=== PATIENT | female | born 1975 | race Caucasian/White ===

== ENCOUNTER 2023-05-23 13:28 | Inpatient (IN) | payer OTHER, MEDICAID, SELFPAY ==
[2023-05-23] VITALS (19 sets, daily range): BP systolic 139–214; BP diastolic 79–115; PULSE 62–101; RESP 16–20; TEMP 36.4–38.4; O2SAT 94–99; BMI 28.3; BMI 33.3
--- NOTE | 2023-05-23 13:35 | DI.RAD.S_ITS ---
PROCEDURE: XR CHEST 1V INDICATIONS: suspected sepsis TECHNIQUE: One view of the chest was acquired. COMPARISON: None. FINDINGS: Surgical changes and devices: None. Lungs and pleura: On this semiupright portable chest examination, no large pneumothorax or large pleural effusions are seen. No focal infiltrates are seen. Mediastinum: Mediastinal contours appear normal. Heart size is normal. Bones and chest wall: No suspicious bony lesions. Overlying soft tissues appear unremarkable. IMPRESSION: Portable chest within normal limits for age. Dictated by: Eder Weiss M.D. on 05/23/2023 at 13:08 Approved by: Eder Weiss M.D. on 05/23/2023 at 13:08
[2023-05-23 13:56] LABS: Add Manual Diff / Slide Review NO; Basophils Absolute Auto 100 /uL (0-100); Basophils Percent Auto 0.4 % (0-2); Eosinophils Absolute Auto 100 /uL (0-450); Eosinophils Percent Auto 0.6 % (2-4); Hematocrit 40.1 % (36-46); Hemoglobin 13.4 g/dL (12.0-16.0); Lymphocytes Absolute Auto 1800 /uL (1100-4500); Lymphocytes Percent Auto 10.6 % (25-40); Mean Corpuscular HGB Conc 33.5 % (30-36); Mean Corpuscular Hemoglobin 28.3 PG (26-34); Mean Corpuscular Volume 84.5 fL (80-100); Monocytes Absolute Auto 900 /uL (0-900); Monocytes Percent Auto 5.2 % (3-14); Neutrophils Absolute Auto 13900 /uL (1500-7000); Neutrophils Percent Auto 83.2 % (50-75); Platelet Count 295 X10^3/uL (150-400); Red Blood Cell Count 4.75 X10^6/uL (4.0-5.2); Red Cell Distribution Width 14.5 % (11.6-14.8); White Blood Cell Count 16.7 X10^3/uL (4.5-11.0)
[2023-05-23] MEDS: SODIUM CHLORIDE 0.9% 1,641 ML 547 ML IV (13:58)
[2023-05-23] MEDS: cefTRIAXone 1,000 MG in SODIUM CHLORIDE 0.9% 100 ML 200 MG IV (13:59)
--- NOTE | 2023-05-23 13:59 | DI.US.S_ITS ---
PROCEDURE: US PERIPH VENOUS LOW EXTREM RT INDICATIONS: SWELLING TECHNIQUE: Real-time imaging, as well as color and pulse Doppler interrogation, were performed of the lower extremity deep veins from the inguinal ligament to the popliteal fossa, with documentation of the visualized calf veins. COMPARISON: [facility], CR, XR CHEST 1V, 05/23/2023, 13:38. FINDINGS: The common femoral, femoral, popliteal, and the visualized calf veins are normally compressible, and free of intraluminal thrombus. Color and pulse Doppler demonstrate normal phasic intraluminal flow. There is normal augmentation response to distal compression maneuver. Superficial soft tissue edema can be seen. IMPRESSION: No findings of lower extremity deep venous thrombosis. Dictated by: Eder Weiss M.D. on 05/23/2023 at 14:50 Approved by: Eder Weiss M.D. on 05/23/2023 at 14:51
--- NOTE | 2023-05-23 14:01 | ED.SKABFB ---
HPI - Skin/Abscess/Foreign Bdy General Chief complaint: Skin/Abscess/Foreign Body Stated complaint: swollen rt leg Time Seen by Provider: 05/23/23 13:36 History of Present Illness HPI narrative: 47-year-old female presents for evaluation of right lower extremity pain and swelling. Has been present for approximately 3-4 days. Patient has no known medical history, however she is not seen a doctor in many years. Patient states that she is fallen frequently and has two kittens that have scratched up her leg. Over the last few days her leg has become progressively more red and more swollen. It is painful and now she has several areas that are weeping pus and she decided to present for evaluation. Related Data Home Medications Medication Instructions Recorded Confirmed No Known Home Medications 05/23/23 05/23/23 Allergies Allergy/AdvReac Type Severity Reaction Status Date / Time latex Allergy Mild Hives Verified 05/23/23 13:38 Review of Systems Review of Systems Narrative: CONSTITUTIONAL- Denies: fever, chills, fatigue HEENT- Denies: sore throat, nosebleed, vision changes RESPIRATORY- Denies: shortness of breath, cough, wheezing CARDIAC- Denies: chest pain, edema, orthopnea GI- Denies: abdominal pain, nausea, vomiting, constipation, diarrhea - Denies: frequency, dysuria, hematuria, flank pain MSK-reports: Extremity pain, extremity swelling Denies: joint pain, joint swelling SKIN-reports: Redness, swelling NEUROLOGICAL- Denies: headache, numbness, weakness, dizziness PSYCHIATRIC- Denies: anxiety, depression, suicidal ideation, homicidal ideation Patient History Medical History Hypertension Smoker Social History household members: none Smoking Status: Current some day smoker alcohol intake: current Exam Initial Vital Signs Initial Vital Signs: Vital Signs Temperature 97.5 F L 05/23/23 13:30 Pulse Rate 98 H 05/23/23 13:30 Respiratory Rate 16 05/23/23 13:30 Blood Pressure 161/96 H 05/23/23 13:30 Pulse Oximetry 98 05/23/23 13:30 Oxygen Delivery Method Room Air 05/23/23 13:30 Const: Disheveled, appears older than stated age, chronically unwell Eyes: PERRL, EOMI, conjunctiva normal ENT: Atraumatic, dentition normal, mucous membranes moist Cardiac: regular rate, regular rhythm RESP: unlabored, clear bilaterally, no wheezing GI: Atraumatic, soft, nontender, nondistended, no rebound, no guarding MSK: Excoriations over RLE, full range of motion, pulses equal Skin: Extensive erythema and cellulitis of right lower extremity, warmth present, extending up to groin Neuro: AO x3, CN II-XII grossly intact, moves all extremities Psych: affect normal, mood normal, not suicidal, not homicidal Course Course Course Narrative: This is a chronically unwell appearing patient with extensive cellulitic changes to her right lower extremity. There is weeping pus from several excoriations on the lower extremity. Several possible sources, patient states that she frequently falls and scratches her legs on different things, however she has also been scratched repeatedly by new kittens. We will cover for normal skin sudarshan, however will also cover for feline bacteria by including flagyl. Orders Ordered: Acetaminophen (Acetaminophen 325 Mg Tablet) 650 mg PO Q6H PRN PRN Reason: Fever/Mild Pain (1-3) Last Admin: 05/23/23 23:17 Dose: 650 mg Documented By: MS Heparin Sodium (Porcine) (Heparin 5,000 Unit/Ml Vial) 5,000 unit SUBCUT BID [facility] Last Admin: 05/23/23 21:47 Dose: 5,000 unit Documented By: MS Sodium Chloride (Normal Saline 0.9%) 1,000 mls @ 100 mls/hr IV CONT [facility] Last Admin: 05/23/23 21:47 Dose: 100 mls/hr Documented By: MS Vancomycin HCl/Dextrose (Vancomycin) 1,500 mg in 300 mls @ 200 mls/hr IV Q12H [facility] Last Infusion: 05/24/23 02:53 Dose: 0 mls/hr Documented By: Admin: 05/24/23 01:23 Dose: 200 mls/hr Documented By: MS Ampicillin Sodium/Sulbactam (Sodium 3 gm/ Sodium Chloride) 100 mls @ 200 mls/hr IV Q6H [facility] Metronidazole (Metronidazole 500 Mg Tablet) 500 mg PO BID [facility] Last Admin: 05/23/23 21:47 Dose: 500 mg Documented By: MS Naloxone HCl (Naloxone 0.4 Mg/Ml Vial) 0.2 mg IV Q2MIN PRN PRN Reason: Opiate Reversal Ondansetron HCl (Ondansetron 4 Mg/2 Ml Inj) 4 mg IV Q8HR PRN PRN Reason: Nausea And Vomiting Oxycodone/Acetaminophen (Oxycodone/Acetaminophen 5/325 Tablet) 1 tab PO Q4HR PRN PRN Reason: Pain, Moderate (4-6) Last Admin: 05/24/23 04:49 Dose: 1 tab Documented By: Potassium Chloride (Potassium Chloride 20 Meq Tab) 40 meq PO Q6H CARLITO Stop: 05/24/23 13:16 Vancomycin HCl (Vancomycin Per Pharmacy) 1 request MISC NOW ONE Stop: 05/23/23 19:19 Discontinued Medications Acetaminophen (Acetaminophen 325 Mg Tablet) 975 mg PO NOW ONE Stop: 05/23/23 18:06 Last Admin: 05/23/23 18:07 Dose: 975 mg Documented By: ELIDIA Sodium Chloride (Normal Saline 0.9%) 1,000 mls @ 1,000 mls/hr IV BOLUS ONE Stop: 05/23/23 14:34 Last Admin: 05/23/23 16:33 Dose: Not Given Documented By: ELIDIA Vancomycin HCl/Dextrose (Vancomycin) 1,500 mg in 300 mls @ 200 mls/hr IV NOW ONE Stop: 05/23/23 15:21 Last Infusion: 05/23/23 16:49 Dose: 0 mls/hr Documented By: Admin: 05/23/23 15:00 Dose: 200 mls/hr Documented By: ELIDIA Ceftriaxone Sodium 1,000 mg/ (Sodium Chloride) 100 mls @ 200 mls/hr IV NOW ONE Stop: 05/23/23 13:53 Last Infusion: 05/23/23 14:57 Dose: 0 mls/hr Documented By: Admin: 05/23/23 13:59 Dose: 200 mls/hr Documented By: SYLVESTER Metronidazole (Flagyl) 500 mg in 100 mls @ 100 mls/hr IV NOW ONE Stop: 05/23/23 14:54 Last Infusion: 05/23/23 18:01 Dose: 0 mls/hr Documented By: Admin: 05/23/23 16:55 Dose: 100 mls/hr Documented By: ELIDIA Sodium Chloride (Normal Saline 0.9%) 1,641 mls @ 547 mls/hr 30 ml/kg infuse over 3 hr (1641 ml) IV NOW ONE Stop: 05/23/23 17:43 Last Infusion: 05/23/23 16:27 Dose: 0 mls/hr Documented By: Admin: 05/23/23 13:58 Dose: 547 mls/hr Documented By: BS Ceftriaxone Sodium 1,000 mg/ (Sodium Chloride) 100 mls @ 200 mls/hr IV Q24H [facility] Last Admin: 05/24/23 07:26 Dose: Not Given Documented By: LDV Ceftriaxone Sodium 1,000 mg/ (Sodium Chloride) 100 mls @ 200 mls/hr IV Q24H [facility] Ondansetron HCl (Ondansetron 4 Mg/2 Ml Inj) 4 mg IV NOW PRN PRN Reason: Nausea And Vomiting Ondansetron HCl (Ondansetron 4 Mg Odt) 4 mg SL NOW PRN PRN Reason: Nausea And Vomiting Reevaluation(s) Reevaluation #1: Laboratory work significant for leukocytosis, elevated lactic acid. Urine drug screen positive for amphetamines. Imaging is negative for DVT or pneumonia. Due to the extensive cellulitis as well as lab derangements patient poor candidate for outpatient treatment and will admit patient for further IV antibiotics and treatment. Vital Signs Vital signs: Vital Signs - 8 hr 05/23/23 13:30 05/23/23 14:23 05/23/23 14:24 Temperature 97.5 F L Pulse Rate 98 H 62 Respiratory Rate 16 Blood Pressure 161/96 H 157/79 H Pulse Oximetry 98 97 Oxygen Delivery Method Room Air Room Air 05/23/23 14:30 05/23/23 14:30 05/23/23 15:00 Temperature Pulse Rate 86 Respiratory Rate Blood Pressure 154/88 H 159/101 H Pulse Oximetry 97 Oxygen Delivery Method Room Air 05/23/23 15:00 05/23/23 15:05 05/23/23 15:05 Temperature Pulse Rate 90 91 H Respiratory Rate Blood Pressure 162/82 H Pulse Oximetry 95 95 Oxygen Delivery Method 05/23/23 15:30 05/23/23 15:30 05/23/23 16:00 Temperature Pulse Rate 86 Respiratory Rate Blood Pressure 158/92 H 172/91 H Pulse Oximetry 95 Oxygen Delivery Method Room Air 05/23/23 16:00 05/23/23 16:30 05/23/23 16:30 Temperature Pulse Rate 92 H 90 Respiratory Rate Blood Pressure 168/104 H Pulse Oximetry 94 94 Oxygen Delivery Method Room Air 05/23/23 16:47 05/23/23 17:00 05/23/23 17:00 Temperature Pulse Rate 95 H Respiratory Rate Blood Pressure 161/84 H Pulse Oximetry 94 95 Oxygen Delivery Method Room Air 05/23/23 17:30 05/23/23 17:31 05/23/23 17:31 Temperature Pulse Rate 97 H 98 H Respiratory Rate Blood Pressure 214/115 H Pulse Oximetry 94 94 Oxygen Delivery Method 05/23/23 17:35 05/23/23 17:35 Temperature Pulse Rate 100 H Respiratory Rate Blood Pressure 175/92 H Pulse Oximetry 94 Oxygen Delivery Method Room Air MDM - Skin/Abscess/Foreign Bdy Differential Diagnosis Differential diagnosis: Likely abscess of skin or subcutaneous tissue, urticaria and cellulitis Lab Data 05/24/23 05:30 05/24/23 05:30 Labs: Lab Results 05/23/23 05/23/23 05/23/23 Range/Units 13:45 13:45 13:55 WBC 16.7 H (4.5-11.0) X10^3/uL RBC 4.75 (4.0-5.2) X10^6/uL Hgb 13.4 (12.0-16.0) g/dL Hct 40.1 (36-46) % MCV 84.5 (80-100) fL MCH 28.3 (26-34) PG MCHC 33.5 (30-36) % RDW 14.5 (11.6-14.8) % Plt Count 295 (150-400) X10^3/uL Neut % (Auto) 83.2 H (50-75) % Lymph % (Auto) 10.6 L (25-40) % [place] % (Auto) 5.2 (3-14) % Eos % (Auto) 0.6 L (2-4) % Baso % (Auto) 0.4 (0-2) % Neut # (Auto) 11335 H (2474-6168) /uL Lymph # (Auto) 1800 (9565-6514) /uL [place] # (Auto) 900 (0-900) /uL Eos # (Auto) 100 (0-450) /uL Baso # (Auto) 100 (0-100) /uL PT 12.3 (10.1-12.7) SECONDS INR 1.1 (0.9-1.3) APTT 37 H (26-36) SECONDS Sodium (137-145) mmol/L Potassium (3.4-5.1) mmol/L Chloride (98-107) mmol/L Carbon Dioxide (22-32) mmol/L BUN (7-17) mg/dL Creatinine (0.52-1.04) mg/dL Estimated GFR (>60) mL/min BUN/Creatinine Ratio (6-22) Glucose (70-100) mg/dL Lactate 2.8 H (0.7-2.1) mmol/L Calcium (8.4-10.2) mg/dL Total Bilirubin (0.2-1.3) mg/dL AST (14-36) IU/L ALT (<35) IU/L Alkaline Phosphatase (38-126) U/L Total Protein (6.3-8.2) g/dL Albumin (3.5-5.0) g/dL Globulin (1.7-4.1) g/dL Albumin/Globulin Ratio (1.0-2.8) Lipase (23-300) U/L Procalcitonin (<0.5) ng/mL Urine RBC (0-5/HPF) Urine WBC (0-5/HPF) Ur Squamous Epith Cells (0-5/HPF) Urine Bacteria (None) Urine Trichomonas (None Seen) Ur Culture Indicated? U Opiates 300ng/mL cut (Negative) Ur Oxycodone Screen (Negative) Urine Methadone Screen (Negative) Ur Barbiturates Screen (Negative) U Tricyclic Antidepress (Negative) Ur Phencyclidine Scrn (Negative) Ur Amphetamines Screen (Negative) U Methamphetamines Scrn (Negative) Ur MDMA Scrn (Ecstasy) (Negative) U Benzodiazepines Scrn (Negative) Urine Cocaine Screen (Negative) U Marijuana (THC) Screen (Negative) 05/23/23 05/23/23 05/23/23 Range/Units 13:55 15:53 16:55 WBC (4.5-11.0) X10^3/uL RBC (4.0-5.2) X10^6/uL Hgb (12.0-16.0) g/dL Hct (36-46) % MCV (80-100) fL MCH (26-34) PG MCHC (30-36) % RDW (11.6-14.8) % Plt Count (150-400) X10^3/uL Neut % (Auto) (50-75) % Lymph % (Auto) (25-40) % [place] % (Auto) (3-14) % Eos % (Auto) (2-4) % Baso % (Auto) (0-2) % Neut # (Auto) (6685-0532) /uL Lymph # (Auto) (8001-8193) /uL [place] # (Auto) (0-900) /uL Eos # (Auto) (0-450) /uL Baso # (Auto) (0-100) /uL PT (10.1-12.7) SECONDS INR (0.9-1.3) APTT (26-36) SECONDS Sodium 137 (137-145) mmol/L Potassium 3.5 (3.4-5.1) mmol/L Chloride 99 (98-107) mmol/L Carbon Dioxide 27 (22-32) mmol/L BUN 15 (7-17) mg/dL Creatinine 1.01 (0.52-1.04) mg/dL Estimated GFR > 60 (>60) mL/min BUN/Creatinine Ratio 14.9 (6-22) Glucose 128 H (70-100) mg/dL Lactate 1.0 (0.7-2.1) mmol/L Calcium 8.8 (8.4-10.2) mg/dL Total Bilirubin 0.4 (0.2-1.3) mg/dL AST 22 (14-36) IU/L ALT 21 (<35) IU/L Alkaline Phosphatase 85 (38-126) U/L Total Protein 7.3 (6.3-8.2) g/dL Albumin 3.7 (3.5-5.0) g/dL Globulin 3.6 (1.7-4.1) g/dL Albumin/Globulin Ratio 1.0 (1.0-2.8) Lipase 299 (23-300) U/L Procalcitonin 0.11 (<0.5) ng/mL Urine RBC None seen (0-5/HPF) Urine WBC 1-5/hpf (0-5/HPF) Ur Squamous Epith Cells 5-10 /hpf H (0-5/HPF) Urine Bacteria None seen (None) Urine Trichomonas 1-5/hpf H (None Seen) Ur Culture Indicated? Specimen cultured U Opiates 300ng/mL cut (Negative) Ur Oxycodone Screen (Negative) Urine Methadone Screen (Negative) Ur Barbiturates Screen (Negative) U Tricyclic Antidepress (Negative) Ur Phencyclidine Scrn (Negative) Ur Amphetamines Screen (Negative) U Methamphetamines Scrn (Negative) Ur MDMA Scrn (Ecstasy) (Negative) U Benzodiazepines Scrn (Negative) Urine Cocaine Screen (Negative) U Marijuana (THC) Screen (Negative) 05/23/23 Range/Units 16:55 WBC (4.5-11.0) X10^3/uL RBC (4.0-5.2) X10^6/uL Hgb (12.0-16.0) g/dL Hct (36-46) % MCV (80-100) fL MCH (26-34) PG MCHC (30-36) % RDW (11.6-14.8) % Plt Count (150-400) X10^3/uL Neut % (Auto) (50-75) % Lymph % (Auto) (25-40) % [place] % (Auto) (3-14) % Eos % (Auto) (2-4) % Baso % (Auto) (0-2) % Neut # (Auto) (6924-8193) /uL Lymph # (Auto) (3171-2528) /uL [place] # (Auto) (0-900) /uL Eos # (Auto) (0-450) /uL Baso # (Auto) (0-100) /uL PT (10.1-12.7) SECONDS INR (0.9-1.3) APTT (26-36) SECONDS Sodium (137-145) mmol/L Potassium (3.4-5.1) mmol/L Chloride (98-107) mmol/L Carbon Dioxide (22-32) mmol/L BUN (7-17) mg/dL Creatinine (0.52-1.04) mg/dL Estimated GFR (>60) mL/min BUN/Creatinine Ratio (6-22) Glucose (70-100) mg/dL Lactate (0.7-2.1) mmol/L Calcium (8.4-10.2) mg/dL Total Bilirubin (0.2-1.3) mg/dL AST (14-36) IU/L ALT (<35) IU/L Alkaline Phosphatase (38-126) U/L Total Protein (6.3-8.2) g/dL Albumin (3.5-5.0) g/dL Globulin (1.7-4.1) g/dL Albumin/Globulin Ratio (1.0-2.8) Lipase (23-300) U/L Procalcitonin (<0.5) ng/mL Urine RBC (0-5/HPF) Urine WBC (0-5/HPF) Ur Squamous Epith Cells (0-5/HPF) Urine Bacteria (None) Urine Trichomonas (None Seen) Ur Culture Indicated? U Opiates 300ng/mL cut Negative (Negative) Ur Oxycodone Screen Negative (Negative) Urine Methadone Screen Negative (Negative) Ur Barbiturates Screen Negative (Negative) U Tricyclic Antidepress Negative (Negative) Ur Phencyclidine Scrn Negative (Negative) Ur Amphetamines Screen Positive H (Negative) U Methamphetamines Scrn Positive H (Negative) Ur MDMA Scrn (Ecstasy) Negative (Negative) U Benzodiazepines Scrn Negative (Negative) Urine Cocaine Screen Negative (Negative) U Marijuana (THC) Screen Positive H (Negative) Urine Dip Bedside Urine Glucose Negative Bedside Urine Bilirubin - Negative Bedside Urine Ketone - Negative Urine Specific [place] 1.010 Bedside Urine Occult Blood - Negative Bedside Urine pH 6.0 Bedside Urine Protein +/- 15 Bedside Urine Urobilinogen - Negative Bedside Urine Nitrite - Negative Bedside Urine Leukocytes + 70 Esterase Discharge Plan Departure Patient Disposition: Admitted As Inpatient Clinical Impression: Cellulitis, Amphetamine abuse, Sepsis, Leg swelling Admit Date/Time: 05/23/23 17:40 Admit Provider: Jagdish Dean
[2023-05-23 14:09] LABS: Lactate (Lactic Acid) 2.8 mmol/L (0.7-2.1)
[2023-05-23 14:17] LABS: INR 1.1 (0.9-1.3); Prothrombin Time 12.3 SECONDS (10.1-12.7)
[2023-05-23 14:18] LABS: Alanine Aminotransferase 21 IU/L (<35); Albumin 3.7 g/dL (3.5-5.0); Alkaline Phosphatase 85 U/L (38-126); Aspartate Aminotransferase 22 IU/L (14-36); BUN Creatinine Ratio 14.9 (6-22); Bilirubin Total 0.4 mg/dL (0.2-1.3); Blood Urea Nitrogen 15 mg/dL (7-17); Calcium 8.8 mg/dL (8.4-10.2); Carbon Dioxide 27 mmol/L (22-32); Chloride 99 mmol/L (98-107); Estimated Glomerular Filt Rate > 60 mL/min (>60); Globulin 3.6 g/dL (1.7-4.1); Glucose 128 mg/dL (70-100); HEMOLYSIS < 15 (0-50); Lipase 299 U/L (23-300); Potassium 3.5 mmol/L (3.4-5.1); Sodium 137 mmol/L (137-145); Total Protein 7.3 g/dL (6.3-8.2)
[2023-05-23 14:19] LABS: PTT Partial Thromboplastin Tim 37 SECONDS (26-36)
[2023-05-23 14:35] LABS: Procalcitonin 0.11 ng/mL (<0.5)
[2023-05-23] MEDS: VANCOMYCIN 1,500 MG/300 ML PIGGYBACK 200 MG IV (15:00)
[2023-05-23 15:50] LABS: Reflexed Lactate in 2 Hours Y
[2023-05-23] MEDS: metroNIDAZOLE 500 MG/100 ML PIGGYBACK 100 MG IV (16:55)
[2023-05-23 17:33] LABS: Culture Indicated Urine Specimen Cultured; RBC Urine None Seen (0-5/HPF); Squamous Epithelial Cell Urine 5-10 /HPF (0-5/HPF); Trichomonas Urine 1-5/HPF (None Seen); WBC Urine 1-5/HPF (0-5/HPF)
[2023-05-23 17:34] LABS: Bacteria Urine None Seen
[2023-05-23 17:49] LABS: Ur Creatinine Normal (Normal); Ur Specific Gravity Normal (Normal); Urine Cocaine Negative (Negative); Urine Tetrahydrocannabinol Positive (Negative); Urine pH Normal (Normal)
[2023-05-23 17:50] LABS: UR Morphine/Opiate cutoff 300 Negative (Negative); Urine Amphetamines Positive (Negative); Urine Barbiturates Negative (Negative); Urine Benzodiazepines Negative (Negative); Urine MDMA Negative (Negative); Urine Methadone Negative (Negative); Urine Methamphetamines Positive (Negative); Urine Oxycodone Negative (Negative); Urine Phencyclidine Negative (Negative); Urine Tricyclic Antidepressant Negative (Negative)
[2023-05-23] MEDS: ACETAMINOPHEN 325 MG TABLET 975 MG PO (18:07)
--- NOTE | 2023-05-23 19:47 | PM.HP.1 ---
History of Present Illness History of Present Illness Date Patient Seen: 05/23/23 Time Patient Seen: 08:00 Chief complaint: swollen rt leg Narrative: Ms. Lunsford is a 47W with no significant past medical history who presents to the hospital with leg pain and swelling. She has had some chills. She has kittens which have scratched her. She has some pus in the leg. Because of this she presented to the hospital. In the ED workup was done, patient initially afebrile, repeat was found febrile to 101, heart rate in 90s. Labs reviewed and notable for WBC 16.7, plts 295, creatinine 1.01. Lactate 2.8, resolved to 1.0 with fluids. Procal 0.11. UA showed trichomonas. She was given antibiotics and admitted for further treatment. [facility] Medical History Hypertension Smoker Meds Home Medications and Allergies Home Medications Medication Instructions Recorded Confirmed Type No Known Home Medications 05/23/23 05/23/23 History Allergies Allergy/AdvReac Type Severity Reaction Status Date / Time latex Allergy Mild Hives Verified 05/23/23 13:38 Review of Systems Review of Systems Narrative: 14 systems reviewed and negative aside from what is noted in HPI Exam Vital Signs (past 8 hours): - 05/23/23 13:30 05/23/23 14:23 05/23/23 14:24 Temperature 97.5 F L Pulse Rate 98 H 62 Respiratory Rate 16 Blood Pressure 161/96 H 157/79 H Pulse Oximetry 98 97 Oxygen Delivery Method Room Air Room Air Oxygen Flow Rate 05/23/23 14:30 05/23/23 14:30 05/23/23 15:00 Temperature Pulse Rate 86 Respiratory Rate Blood Pressure 154/88 H 159/101 H Pulse Oximetry 97 Oxygen Delivery Method Room Air Oxygen Flow Rate 05/23/23 15:00 05/23/23 15:05 05/23/23 15:05 Temperature Pulse Rate 90 91 H Respiratory Rate Blood Pressure 162/82 H Pulse Oximetry 95 95 Oxygen Delivery Method Oxygen Flow Rate 05/23/23 15:30 05/23/23 15:30 05/23/23 16:00 Temperature Pulse Rate 86 Respiratory Rate Blood Pressure 158/92 H 172/91 H Pulse Oximetry 95 Oxygen Delivery Method Room Air Oxygen Flow Rate 05/23/23 16:00 05/23/23 16:30 05/23/23 16:30 Temperature Pulse Rate 92 H 90 Respiratory Rate Blood Pressure 168/104 H Pulse Oximetry 94 94 Oxygen Delivery Method Room Air Oxygen Flow Rate 05/23/23 16:47 05/23/23 17:00 05/23/23 17:00 Temperature Pulse Rate 95 H Respiratory Rate Blood Pressure 161/84 H Pulse Oximetry 94 95 Oxygen Delivery Method Room Air Oxygen Flow Rate 05/23/23 17:30 05/23/23 17:31 05/23/23 17:31 Temperature Pulse Rate 97 H 98 H Respiratory Rate Blood Pressure 214/115 H Pulse Oximetry 94 94 Oxygen Delivery Method Oxygen Flow Rate 05/23/23 17:35 05/23/23 17:35 05/23/23 18:00 Temperature Pulse Rate 100 H Respiratory Rate Blood Pressure 175/92 H 192/93 H Pulse Oximetry 94 Oxygen Delivery Method Room Air Oxygen Flow Rate 05/23/23 18:00 05/23/23 18:07 05/23/23 18:20 Temperature 101.2 F H 101.2 F H 101.0 F H Pulse Rate 101 H 92 H Respiratory Rate 20 Blood Pressure 153/101 H Pulse Oximetry 94 99 Oxygen Delivery Method Room Air Oxygen Flow Rate 0 Oxygen Delivery Method Room Air Oxygen Flow Rate 0 Narrative Exam Narrative: GEN: no acute distress CV: regular rate and rhythm, no murmurs PULM: clear bilaterally ABD: soft, nontender EXT: warm and well perfused, areas of erythema in upper and lower leg with pus noted, erythematous and warm to touch, no fluctuance felt Objective Labs 05/23/23 13:45 05/23/23 13:55 Labs: Laboratory Results - last 24 hr 05/23/23 05/23/23 05/23/23 13:45 13:45 13:55 WBC 16.7 H RBC 4.75 Hgb 13.4 Hct 40.1 MCV 84.5 MCH 28.3 MCHC 33.5 RDW 14.5 Plt Count 295 Neut % (Auto) 83.2 H Lymph % (Auto) 10.6 L [place] % (Auto) 5.2 Eos % (Auto) 0.6 L Baso % (Auto) 0.4 Neut # (Auto) 14086 H Lymph # (Auto) 1800 [place] # (Auto) 900 Eos # (Auto) 100 Baso # (Auto) 100 PT 12.3 INR 1.1 APTT 37 H Sodium Potassium Chloride Carbon Dioxide BUN Creatinine Estimated GFR BUN/Creatinine Ratio Glucose Lactate 2.8 H Calcium Total Bilirubin AST ALT Alkaline Phosphatase Total Protein Albumin Globulin Albumin/Globulin Ratio Lipase Procalcitonin Urine RBC Urine WBC Ur Squamous Epith Cells Urine Bacteria Urine Trichomonas Ur Culture Indicated? U Opiates 300ng/mL cut Ur Oxycodone Screen Urine Methadone Screen Ur Barbiturates Screen U Tricyclic Antidepress Ur Phencyclidine Scrn Ur Amphetamines Screen U Methamphetamines Scrn Ur MDMA Scrn (Ecstasy) U Benzodiazepines Scrn Urine Cocaine Screen U Marijuana (THC) Screen 05/23/23 05/23/23 05/23/23 13:55 15:53 16:55 WBC RBC Hgb Hct MCV MCH MCHC RDW Plt Count Neut % (Auto) Lymph % (Auto) [place] % (Auto) Eos % (Auto) Baso % (Auto) Neut # (Auto) Lymph # (Auto) [place] # (Auto) Eos # (Auto) Baso # (Auto) PT INR APTT Sodium 137 Potassium 3.5 Chloride 99 Carbon Dioxide 27 BUN 15 Creatinine 1.01 Estimated GFR > 60 BUN/Creatinine Ratio 14.9 Glucose 128 H Lactate 1.0 Calcium 8.8 Total Bilirubin 0.4 AST 22 ALT 21 Alkaline Phosphatase 85 Total Protein 7.3 Albumin 3.7 Globulin 3.6 Albumin/Globulin Ratio 1.0 Lipase 299 Procalcitonin 0.11 Urine RBC None seen Urine WBC 1-5/hpf Ur Squamous Epith Cells 5-10 /hpf H Urine Bacteria None seen Urine Trichomonas 1-5/hpf H Ur Culture Indicated? Specimen cultured U Opiates 300ng/mL cut Ur Oxycodone Screen Urine Methadone Screen Ur Barbiturates Screen U Tricyclic Antidepress Ur Phencyclidine Scrn Ur Amphetamines Screen U Methamphetamines Scrn Ur MDMA Scrn (Ecstasy) U Benzodiazepines Scrn Urine Cocaine Screen U Marijuana (THC) Screen 05/23/23 16:55 WBC RBC Hgb Hct MCV MCH MCHC RDW Plt Count Neut % (Auto) Lymph % (Auto) [place] % (Auto) Eos % (Auto) Baso % (Auto) Neut # (Auto) Lymph # (Auto) [place] # (Auto) Eos # (Auto) Baso # (Auto) PT INR APTT Sodium Potassium Chloride Carbon Dioxide BUN Creatinine Estimated GFR BUN/Creatinine Ratio Glucose Lactate Calcium Total Bilirubin AST ALT Alkaline Phosphatase Total Protein Albumin Globulin Albumin/Globulin Ratio Lipase Procalcitonin Urine RBC Urine WBC Ur Squamous Epith Cells Urine Bacteria Urine Trichomonas Ur Culture Indicated? U Opiates 300ng/mL cut Negative Ur Oxycodone Screen Negative Urine Methadone Screen Negative Ur Barbiturates Screen Negative U Tricyclic Antidepress Negative Ur Phencyclidine Scrn Negative Ur Amphetamines Screen Positive H U Methamphetamines Scrn Positive H Ur MDMA Scrn (Ecstasy) Negative U Benzodiazepines Scrn Negative Urine Cocaine Screen Negative U Marijuana (THC) Screen Positive H Assessment & Plan Assessment & Plan narrative: 1. Cellulitis -no evidence of sepsis -continue treatment with vancomycin and ceftriaxone for concern for MRSA as has pus on exam, also history of substance abuse, also gram negative with cats -follow up cultures 2. Trichomonas in urine -plan for treatment with 500mg BID flagyl for 7 days -inform patient about STD and to consider informing partners I have obtained history and discussed plan with patient. I have discussed plan of care with ED physician and bedside nurse. I have reviewed, labs, imaging. CODE: Full Proxy: Dinesh Lunsford, father Quality [facility] Meds 'Current medications' to include all prescriptions, [id number] products, herbals, cannabis/cannabidiol products, and vitamin/mineral/dietary (nutritional) supplements. I have utilized all available resources to obtain, update, or review the patient?s current medications. [If Yes, STOP here]: Yes
[2023-05-23] MEDS: metroNIDAZOLE 500 MG TABLET PO (21:47)
[2023-05-23] MEDS: SODIUM CHLORIDE 0.9% 1,000 ML 100 ML IV (21:47)
[2023-05-23] MEDS: HEPARIN 5,000 UNIT/ML VIAL 5000 UNIT SUBCUT (21:47)
[2023-05-23] MEDS: ACETAMINOPHEN 325 MG TABLET 650 MG PO (23:17)
[2023-05-24] VITALS (7 sets, daily range): BP systolic 137–163; BP diastolic 86–99; PULSE 79–92; RESP 16–20; TEMP 35.9–37.7; O2SAT 94–100
[2023-05-24] MEDS: VANCOMYCIN 1,500 MG/300 ML PIGGYBACK 200 MG IV ×2 (01:23→13:58)
[2023-05-24] MEDS: OXYCODONE/ACETAMINOPHEN 5/325 TABLET 1 TAB PO ×3 (04:49→20:14)
[2023-05-24 06:02] LABS: Add Manual Diff / Slide Review NO; Basophils Absolute Auto 0 /uL (0-100); Basophils Percent Auto 0.3 % (0-2); Eosinophils Absolute Auto 100 /uL (0-450); Eosinophils Percent Auto 0.7 % (2-4); Hematocrit 34.2 % (36-46); Hemoglobin 11.3 g/dL (12.0-16.0); Lymphocytes Absolute Auto 1200 /uL (1100-4500); Mean Corpuscular HGB Conc 33.1 % (30-36); Mean Corpuscular Hemoglobin 28.2 PG (26-34); Mean Corpuscular Volume 85.2 fL (80-100); Monocytes Absolute Auto 700 /uL (0-900); Monocytes Percent Auto 4.2 % (3-14); Neutrophils Absolute Auto 15400 /uL (1500-7000); Neutrophils Percent Auto 87.8 % (50-75); Platelet Count 235 X10^3/uL (150-400); Red Blood Cell Count 4.01 X10^6/uL (4.0-5.2); Red Cell Distribution Width 14.4 % (11.6-14.8); White Blood Cell Count 17.6 X10^3/uL (4.5-11.0)
[2023-05-24 06:11] LABS: BUN Creatinine Ratio 20.7 (6-22); Blood Urea Nitrogen 12 mg/dL (7-17); Calcium 8.3 mg/dL (8.4-10.2); Carbon Dioxide 24 mmol/L (22-32); Chloride 102 mmol/L (98-107); Estimated Glomerular Filt Rate > 60 mL/min (>60); Glucose 150 mg/dL (70-100); HEMOLYSIS < 15 (0-50); Potassium 3.3 mmol/L (3.4-5.1); Sodium 135 mmol/L (137-145)
--- NOTE | 2023-05-24 07:53 | DI.CT.S_ITS ---
PROCEDURE: CT LE RT WO CON INDICATIONS: cellulitis, evidence of abscess? TECHNIQUE: Noncontrast 3 mm axial sections acquired of the left lower extremity, with coronal and sagittal reformats. COMPARISON: [facility], , PERIPH VENOUS LOW EXTREM RT, 05/23/2023, 14:55. FINDINGS: Image quality: Excellent. Bones: No fracture or dislocation. Mild osteoarthritic changes in knee and ankle. Soft tissues: There is diffuse soft tissue swelling in the left lower extremity consistent with cellulitis. There is diffuse cutaneous and subcutaneous edema but no organized drainable fluid collections to suggest abscess. Small knee joint effusion. IMPRESSION: 1. Diffuse soft tissue swelling consistent with cellulitis. 2. No organized drainable fluid collections to suggest abscess. Dictated by: Melinda Mendoza M.D. on 05/24/2023 at 9:09 Approved by: Melinda Mendoza M.D. on 05/24/2023 at 9:12
[2023-05-24] MEDS: SODIUM CHLORIDE 0.9% 1,000 ML 100 ML IV ×2 (08:35→22:07)
[2023-05-24] MEDS: HEPARIN 5,000 UNIT/ML VIAL 5000 UNIT SUBCUT ×2 (08:36→20:15)
[2023-05-24] MEDS: POTASSIUM CHLORIDE 20 MEQ TAB 40 MEQ PO ×2 (08:36→13:58)
[2023-05-24] MEDS: metroNIDAZOLE 500 MG TABLET PO ×2 (08:36→20:14)
[2023-05-24] MEDS: AMPICILLIN/SULBACTAM 3 GM 3 GM in SODIUM CHLORIDE 0.9% 100 ML IV ×3 (08:36→20:15)
--- NOTE | 2023-05-24 09:37 | CM.DANOTE ---
DCP: Chart review for case, met with patient at bedside, they agree to case management assessment. Completed DCP assessment based on information available. Patient is a 47 year old patient admitted for right leg cellulitis. States does not like to go to MD so left it until she could no longer walk on leg. PCP: None Payer: None DME: None DCP: Home with supportive family. Agrees to Medicaid application. States no income, no job, and lives at father?s home in [place]. Father or friend will be courtesy car driver home. Alexandra Mclaughlin RN, CM Discharge Planning/Care Management CM Discharge Assessment Start: 05/24/23 09:33 Freq: Status: Active Protocol: Document 05/24/23 09:33 BQ (Rec: 05/24/23 09:35 BQ [id number]) Discharge Planning Assessment Assigned Crozer Operator Alexandra Mclaughlin RN, CM Advance Directives? No History Provided By Patient Has Patient been admitted in last 30 No days? Prior Living Arrangements House Comment [place] at fathers property Household Members family Type of transporation used prior to Drives own vehicle admit Willing to Return to Facility? No Independent with ADL's Yes Is patient alert and oriented? Yes Caregiver for Another No Barriers to Discharge Yes Comment Medicaid application Discharge Plan Home Referrals Initiated None needed Whiteboard Updated in Patient Room with Yes name and ext. # of Crozer Operator Review Status In Process Next Review Type Continued Stay Review
[2023-05-24] MEDS: ACETAMINOPHEN 325 MG TABLET 650 MG PO (13:58)
--- NOTE | 2023-05-24 16:01 | PM.PN.1 ---
Subjective Subjective Date Patient Seen: 05/24/23 Time Patient Seen: 08:00 Interval history: Swelling has mildly decreased. Pus draining from leg is greater. Her pain is still significant Exam Vital Signs (past 8 hours): - 05/24/23 12:46 05/24/23 13:58 Temperature 98.4 F 100 F H Pulse Rate 92 H Respiratory Rate 18 Blood Pressure 137/86 Pulse Oximetry 98 Oxygen Flow Rate 0 Oxygen Delivery Method Room Air Oxygen Flow Rate 0 Narrative Exam Narrative: GEN: no acute distress CV: regular rate and rhythm, no murmurs PULM: clear bilaterally ABD: soft, nontender EXT: warm and well perfused, areas of erythema in upper and lower leg with pus noted, erythematous and warm to touch, no fluctuance felt Objective Labs 05/24/23 05:30 05/24/23 05:30 Labs: Laboratory Results - last 24 hr 05/23/23 05/23/23 05/23/23 15:53 16:55 16:55 WBC RBC Hgb Hct MCV MCH MCHC RDW Plt Count Neut % (Auto) Lymph % (Auto) [place] % (Auto) Eos % (Auto) Baso % (Auto) Neut # (Auto) Lymph # (Auto) [place] # (Auto) Eos # (Auto) Baso # (Auto) Sodium Potassium Chloride Carbon Dioxide BUN Creatinine Estimated GFR BUN/Creatinine Ratio Glucose Lactate 1.0 Calcium Urine RBC None seen Urine WBC 1-5/hpf Ur Squamous Epith Cells 5-10 /hpf H Urine Bacteria None seen Urine Trichomonas 1-5/hpf H Ur Culture Indicated? Specimen cultured U Opiates 300ng/mL cut Negative Ur Oxycodone Screen Negative Urine Methadone Screen Negative Ur Barbiturates Screen Negative U Tricyclic Antidepress Negative Ur Phencyclidine Scrn Negative Ur Amphetamines Screen Positive H U Methamphetamines Scrn Positive H Ur MDMA Scrn (Ecstasy) Negative U Benzodiazepines Scrn Negative Urine Cocaine Screen Negative U Marijuana (THC) Screen Positive H 05/24/23 05/24/23 05:30 05:30 WBC 17.6 H RBC 4.01 Hgb 11.3 L Hct 34.2 L MCV 85.2 MCH 28.2 MCHC 33.1 RDW 14.4 Plt Count 235 Neut % (Auto) 87.8 H Lymph % (Auto) 7.0 L [place] % (Auto) 4.2 Eos % (Auto) 0.7 L Baso % (Auto) 0.3 Neut # (Auto) 96962 H Lymph # (Auto) 1200 [place] # (Auto) 700 Eos # (Auto) 100 Baso # (Auto) 0 Sodium 135 L Potassium 3.3 L Chloride 102 Carbon Dioxide 24 BUN 12 Creatinine 0.58 Estimated GFR > 60 BUN/Creatinine Ratio 20.7 Glucose 150 H Lactate Calcium 8.3 L Urine RBC Urine WBC Ur Squamous Epith Cells Urine Bacteria Urine Trichomonas Ur Culture Indicated? U Opiates 300ng/mL cut Ur Oxycodone Screen Urine Methadone Screen Ur Barbiturates Screen U Tricyclic Antidepress Ur Phencyclidine Scrn Ur Amphetamines Screen U Methamphetamines Scrn Ur MDMA Scrn (Ecstasy) U Benzodiazepines Scrn Urine Cocaine Screen U Marijuana (THC) Screen PFSH Medical History Hypertension Smoker Social History household members: family Smoking Status: Current some day smoker alcohol intake: current Assessment & Plan Assessment & Plan narrative: 1. Cellulitis -no evidence of sepsis -initial white count 16, not improved with first day of antibiotics as it is increased to 17 -continue treatment with vancomycin and ceftriaxone for concern for MRSA as has pus on exam, also history of substance abuse, also gram negative and anaerobe coverage with unasyn due to injury from cats -follow up cultures -ct scan of leg showed no evidence of abscess 2. Trichomonas in urine -plan for treatment with 500mg BID flagyl for 7 days -informed patient about STD and to consider informing partners I have obtained history and discussed plan with patient. I have discussed plan of care with ED physician and bedside nurse. I have reviewed, labs, imaging. CODE: Full Proxy: Dinesh Lunsford, father
[2023-05-25] MEDS: OXYCODONE/ACETAMINOPHEN 5/325 TABLET 1 TAB PO ×5 (00:06→20:46)
[2023-05-25 01:50] LABS: Hemoglobin 11.3 g/dL (12.0-16.0); Mean Corpuscular HGB Conc 33.3 % (30-36); Mean Corpuscular Hemoglobin 28.2 PG (26-34); Mean Corpuscular Volume 84.5 fL (80-100); Platelet Count 283 X10^3/uL (150-400); Red Blood Cell Count 4.02 X10^6/uL (4.0-5.2); Red Cell Distribution Width 14.3 % (11.6-14.8); White Blood Cell Count 15.1 X10^3/uL (4.5-11.0)
[2023-05-25] MEDS: VANCOMYCIN 1,500 MG/300 ML PIGGYBACK 200 MG IV (01:54)
[2023-05-25 02:00] LABS: BUN Creatinine Ratio 17.3 (6-22); Blood Urea Nitrogen 9 mg/dL (7-17); Calcium 8.7 mg/dL (8.4-10.2); Carbon Dioxide 24 mmol/L (22-32); Chloride 105 mmol/L (98-107); Estimated Glomerular Filt Rate > 60 mL/min (>60); Glucose 114 mg/dL (70-100); HEMOLYSIS < 15 (0-50); Potassium 4.1 mmol/L (3.4-5.1); Sodium 136 mmol/L (137-145)
[2023-05-25 02:06] LABS: Vancomycin Trough 7.6 ug/mL (10-20)
[2023-05-25] MEDS: AMPICILLIN/SULBACTAM 3 GM 3 GM in SODIUM CHLORIDE 0.9% 100 ML IV ×4 (04:23→20:32)
[2023-05-25] MEDS: VANCOMYCIN TROUGH 1 REQUEST MISC (04:24)
[2023-05-25 06:00] VITALS: BP 162/88; PULSE 82; RESP 20; TEMP 36.4; O2SAT 98
[2023-05-25] MEDS: HYDROMORPHONE 1 MG INJ IV (06:48)
[2023-05-25 07:00] VITALS: BP 119/77; PULSE 79; RESP 17; TEMP 36.7; O2SAT 97
[2023-05-25] MEDS: HEPARIN 5,000 UNIT/ML VIAL 5000 UNIT SUBCUT ×2 (08:27→20:32)
[2023-05-25] MEDS: metroNIDAZOLE 500 MG TABLET PO ×2 (08:30→20:33)
[2023-05-25] MEDS: SODIUM CHLORIDE 0.9% 1,000 ML 100 ML IV ×2 (08:35→19:36)
[2023-05-25] MEDS: VANCOMYCIN 1,250 MG/250 ML PIGGYBACK 250 MG IV ×2 (10:02→19:00)
[2023-05-25 11:00] VITALS: BP 120/85; PULSE 80; RESP 17; TEMP 36.3; O2SAT 99
--- NOTE | 2023-05-25 12:08 | CM.DPC ---
Addendum entered by EDMOND Perez 05/25/23 15:47: ADD: Per Surgeon Consult, plan is OR tomorrow for likely debridement and draining of abscess. BF Original Note: DCP COnt: Per MD, pt may be developing an abscess and will consult Surgeon to determine if I&D needed so pt currently NPO. Pt not yet medically stable to d/c and per UR pt now able to switch from OBS to Inpt as of today 05/25. Per [facility], they were able to talk with pt and she qualifies for [employer] and enrolled in [employer] for insurance. Pt will still need to establish with a PCP after discharge. Plan: SW to follow closely for Surgeon Consult to determine if any further intervention needed and cultures to determine IV vs oral abx at d/c. EDMOND Perez
--- NOTE | 2023-05-25 14:00 | PM.PN.1 ---
Subjective Subjective Interval history: 47 F admitted with a L leg cellulitis, swelling maybe has increased slightly per patient and she is more tender today. More of a fluid collection on her miller today, unable to express purulent material. Discussed with surgery whom will evaluate for possible I&D today. Exam Vital Signs (past 8 hours): - 05/25/23 07:00 05/25/23 11:00 Temperature 98.0 F 97.3 F L Pulse Rate 79 80 Respiratory Rate 17 17 Blood Pressure 119/77 120/85 Pulse Oximetry 97 99 Oxygen Delivery Method Room Air Oxygen Flow Rate 0 Narrative Exam Narrative: GEN: no acute distress CV: regular rate and rhythm, no murmurs PULM: clear bilaterally ABD: soft, nontender EXT: warm and well perfused, areas of erythema in upper and lower leg with anterior 2x2 cm collection of purulent material, unable to express any material. Objective Labs 05/25/23 01:36 05/25/23 01:36 Labs: Laboratory Results - last 24 hr 05/25/23 05/25/23 05/25/23 01:36 01:36 01:36 WBC 15.1 H RBC 4.02 Hgb 11.3 L Hct 34.0 L MCV 84.5 MCH 28.2 MCHC 33.3 RDW 14.3 Plt Count 283 Sodium 136 L Potassium 4.1 Chloride 105 Carbon Dioxide 24 BUN 9 Creatinine 0.52 Estimated GFR > 60 BUN/Creatinine Ratio 17.3 Glucose 114 H Calcium 8.7 Vancomycin Trough 7.6 L PFSH Medical History Hypertension Smoker Social History household members: family Smoking Status: Current some day smoker alcohol intake: current Assessment & Plan Assessment & Plan narrative: 1. Cellulitis with possible abscess of her left lower extremity -no evidence of sepsis -initial white count 16, improved slightly today but slight worsening of erythema and may have coalesced into a drainable collection now. Discussed with surgeon breed to wean production technician whom will evaluate the patient for possible I&D. -continue treatment with vancomycin and ceftriaxone for concern for MRSA as has pus on exam, also history of substance abuse, also gram negative and anaerobe coverage with unasyn due to injury from cats -follow up cultures -ct scan of leg showed no evidence of abscess initially, additional imaging not recommended by surgeon breed to wean production technician at this time. 2. Trichomonas in urine -plan for treatment with 500mg BID flagyl for 7 days -informed patient about STD and to consider informing partners I have obtained history and discussed plan with patient. Discussed with surgery as noted above as well. I have discussed plan of care with bedside nurse and patient. I have reviewed, labs, imaging. CODE: Full Proxy: Dinesh Lunsford, father\ Dispo: inpatient, anticipate discharge home, timing in the next 2-3 days depending on above management of #1. Quality MIPS - Admit I confirm the patient?s Advance Care Plan is present, Code status is documented, Surrogate decision maker is in patient?s record [If Yes, STOP here]: Yes
--- NOTE | 2023-05-25 15:25 | PM.CN ---
History of Present Illness Consult details Date Patient Seen: 05/25/23 Time Patient Seen: 15:25 Chief complaint: swollen rt leg Reason for consult: abscess left leg Requesting provider: Magdy Castro Narrative: H/o IVDA with new swollen left leg with lesion vs abscess anterior tib. Persistent elevated WBC. Meds Home Medications and Allergies Home Medications Medication Instructions Recorded Confirmed Type No Known Home Medications 05/23/23 05/23/23 History Allergies Allergy/AdvReac Type Severity Reaction Status Date / Time latex Allergy Mild Hives Verified 05/23/23 13:38 Review of Systems Review of Systems Narrative: fevers, chill, pain in left lower leg Exam Vital Signs (past 8 hours): - 05/25/23 11:00 Temperature 97.3 F L Pulse Rate 80 Respiratory Rate 17 Blood Pressure 120/85 Pulse Oximetry 99 Oxygen Delivery Method Room Air Oxygen Flow Rate 0 Const General: cooperative and No in distress Nutritional Appearance: overweight Orientation: alert, awake and oriented x3 HENMT Head: normal to inspection Ears: hearing grossly normal bilaterally Eyes Sclera: sclerae normal Neck Neck: trachea midline Resp Effort & Inspection: normal respiratory effort and able to speak in complete sentences Cardio Rate: regular rate Rhythm: regular rhythm GI Palpation: soft Skin General: erythema, excoriations, petechiae and scars Hair: brittle Neuro General: patient alert, patient awake and patient oriented x3 Speech: speech normal Extrem Left lower extremity: edema, no joint enlargement and lower leg (cellulitis with a lesion that is ulcerated and protruding above skin) Details: tenderness, localized swelling and warmth; no ecchymosis, no crepitus and no deformity Other: lesion represents exophitic abscess most likely Psych Affect: animated Judgment: judgment good Objective Labs 05/25/23 01:36 05/25/23 01:36 Labs: Laboratory Results - last 24 hr 05/25/23 05/25/23 05/25/23 01:36 01:36 01:36 WBC 15.1 H RBC 4.02 Hgb 11.3 L Hct 34.0 L MCV 84.5 MCH 28.2 MCHC 33.3 RDW 14.3 Plt Count 283 Sodium 136 L Potassium 4.1 Chloride 105 Carbon Dioxide 24 BUN 9 Creatinine 0.52 Estimated GFR > 60 BUN/Creatinine Ratio 17.3 Glucose 114 H Calcium 8.7 Vancomycin Trough 7.6 L PFSH Medical History Hypertension Smoker Social History household members: family Tobacco & Substance Use Smoking Status: Current some day smoker alcohol intake: current Assessment & Plan Assessment & Plan narrative: left lower leg cellulitis with abscess vs wound that would benefit from I and D vs debridement Plan: OR tomorrow for exploration of left lower extremity Time Spent With Patient Time with patient: 30 to 49 minutes with 50% spent counseling/coordinating care
[2023-05-25 21:05] VITALS: BP 172/101; PULSE 88; RESP 18; TEMP 37.1; O2SAT 97
[2023-05-25 21:07] VITALS: BP 180/97; PULSE 91; O2SAT 96
[2023-05-26] VITALS (19 sets, daily range): BP systolic 107–178; BP diastolic 64–105; PULSE 74–103; RESP 12–22; TEMP 35.2–37.1; O2SAT 78–100; BMI 33.3
[2023-05-26] MEDS: OXYCODONE/ACETAMINOPHEN 5/325 TABLET 1 TAB PO ×2 (01:08→05:23)
[2023-05-26] MEDS: VANCOMYCIN 1,250 MG/250 ML PIGGYBACK 250 MG IV ×3 (02:03→18:07)
[2023-05-26] MEDS: HYDROMORPHONE 1 MG INJ IV ×4 (02:53→23:50)
[2023-05-26] MEDS: AMPICILLIN/SULBACTAM 3 GM 3 GM in SODIUM CHLORIDE 0.9% 100 ML IV ×4 (03:09→20:13)
--- NOTE | 2023-05-26 04:33 | PC.NURSE ---
Patient is alert and oriented. Breath sounds CTA with wheezing auscultated in both right upper and middle lobes; reports she is a smoker and denies any SOB. HRR. BP elevated initially at 180/97 but on 2nd set of vitals was only 146/85 so may have been related to either activity and/or pain. Denied nausea. BT present and passing flatus; did report she had diarrhea although only 1 BM documented on previous shift; education provided regarding risk of c-diff related to antibiotics. Denies any dysuria with urination. Is able to turn herself in bed. Gets up to bathroom with walker and SBA. Right LE is swollen, tight and shiny, with erythema from ankle up to knee and some erythema on medial thigh extending almost to groin. Leg is warm to touch and painful when not elevated. Has a lesion on right lower leg which is raised and appears to have pus in it; no drainage noted on pad under leg but states it has been draining serous fluid but no odor noted. Was medication with percocet twice this shift and also with IV dilaudid. Has been NPO since 0000 as is expected to have I&D later today. Fall risk score is high and bed alarm is activated although patient has been calling appropriately for assistance.
[2023-05-26] MEDS: ACETAMINOPHEN 325 MG TABLET 650 MG PO (07:48)
[2023-05-26] MEDS: metroNIDAZOLE 500 MG TABLET PO ×2 (08:08→21:09)
[2023-05-26] MEDS: SODIUM CHLORIDE 0.9% 1,000 ML 100 ML IV (08:11)
[2023-05-26] MEDS: VANCOMYCIN TROUGH 1 REQUEST MISC (09:53)
[2023-05-26] MEDS: LACTATED RINGERS 1,000 ML 120 ML IV (11:15)
--- NOTE | 2023-05-26 11:56 | PM.PREOP ---
Pre-operative Note COVID-19 COVID-19 status: Negative Interval Note History & Physical reviewed/Exam performed by Physician: Yes Changes to H&P: No
--- NOTE | 2023-05-26 12:38 | SUR.OPER ---
Supine on hospital bed, head on pillow, legs uncrossed, rails up on non operative side.
--- NOTE | 2023-05-26 12:46 | PM.OP.1 ---
Operative Date/Time/Diagnoses Date of procedure: 05/26/23 Time of procedure: 12:46 Pre-op diagnosis: right lower leg abscess Post-op diagnosis: same Procedure & Clinicians Procedure: I and d right lower leg infection Same procedure as scheduled: Yes Indications: Right lower leg abscess Surgeon: Brandy Bailey Click Yes if Unassisted: Yes Anesthesia Type: General and Local Operative Notes Findings: Right lower leg abscess Closure Type: not applicable Specimen(s): other (Cultures x2 of abscess right lower leg) Estimated Blood Loss (mL): 5 Blood products transfused: none Procedure in detail: Preop diagnosis: Right lower extremity abscess Postop diagnosis: Same Operative procedure: Incision and drainage of right lower extremity abscess Surgeon: Megha Bailey MD Anesthetic: LMA with local Findings: Anterior tibial right lower leg abscess 2.5 x 3.0 cm, with depth of 3 mm Procedure: Patient placed in a supine position. Prepped and draped in sterile fashion. Ten blade was used to excise a circumferential area of necrotic skin to release purulent drainage. Cultures were taken and sent. Wound was debrided with Ray-Kiya. Hemostasis was achieved with electrocautery. Patient was awakened and extubated. Taken to PACU in stable condition. Needle, instrument, sponge counts were correct. Dressing consisted of 4 x 4 soaked in 0.25% Marcaine with epinephrine followed by Kerlix wrap and then Coban. Specimen: Wound culture Blood loss: 5 mL Complications: none Post-operative Condition: stable Disposition: PACU
[2023-05-26] MEDS: OXYCODONE IR 5 MG TABLET PO ×2 (12:57→13:18)
[2023-05-26] MEDS: ONDANSETRON 4 MG/2 ML INJ IV (12:57)
[2023-05-26] MEDS: hydrOXYzine pamoate 25 MG CAPSULE 50 MG PO (12:57)
[2023-05-26 14:49] LABS: Add Manual Diff / Slide Review NO; Basophils Absolute Auto 0 /uL (0-100); Basophils Percent Auto 0.3 % (0-2); Eosinophils Absolute Auto 100 /uL (0-450); Eosinophils Percent Auto 0.8 % (2-4); Hematocrit 33.9 % (36-46); Hemoglobin 11.1 g/dL (12.0-16.0); Lymphocytes Absolute Auto 800 /uL (1100-4500); Lymphocytes Percent Auto 5.4 % (25-40); Mean Corpuscular HGB Conc 32.6 % (30-36); Mean Corpuscular Hemoglobin 27.9 PG (26-34); Mean Corpuscular Volume 85.6 fL (80-100); Monocytes Absolute Auto 300 /uL (0-900); Monocytes Percent Auto 2.2 % (3-14); Neutrophils Absolute Auto 14300 /uL (1500-7000); Neutrophils Percent Auto 91.3 % (50-75); Platelet Count 408 X10^3/uL (150-400); Red Blood Cell Count 3.97 X10^6/uL (4.0-5.2); Red Cell Distribution Width 14.7 % (11.6-14.8); White Blood Cell Count 15.6 X10^3/uL (4.5-11.0)
[2023-05-26 14:59] LABS: BUN Creatinine Ratio 20.4 (6-22); Blood Urea Nitrogen 10 mg/dL (7-17); Calcium 8.7 mg/dL (8.4-10.2); Carbon Dioxide 26 mmol/L (22-32); Chloride 101 mmol/L (98-107); Estimated Glomerular Filt Rate > 60 mL/min (>60); Glucose 158 mg/dL (70-100); HEMOLYSIS 31 (0-50); Potassium 4.3 mmol/L (3.4-5.1); Sodium 134 mmol/L (137-145)
--- NOTE | 2023-05-26 16:50 | PM.PN.1 ---
Subjective Subjective Interval history: 47 F admitted with a R leg cellulitis, with development into drainable collection today. She underwent I&D with surgery today. Feels improved pressure and pain after drainage. No other complaints. Exam Vital Signs (past 8 hours): - 05/26/23 10:45 05/26/23 12:42 05/26/23 12:45 Temperature 98.1 F 97.1 F L Pulse Rate 84 76 80 Respiratory Rate 18 22 12 Blood Pressure 161/103 H 107/64 111/73 Pulse Oximetry 96 94 96 Oxygen Delivery Method Room Air Room Air Room Air 05/26/23 12:51 05/26/23 12:51 05/26/23 13:01 Temperature Pulse Rate 76 76 80 Respiratory Rate 14 12 12 Blood Pressure 118/74 118/74 141/80 H Pulse Oximetry 95 98 99 Oxygen Delivery Method Room Air Room Air Room Air 05/26/23 13:06 05/26/23 13:11 05/26/23 13:16 Temperature Pulse Rate 77 74 74 Respiratory Rate 13 14 13 Blood Pressure 132/89 141/90 H 141/88 H Pulse Oximetry 78 L 99 98 Oxygen Delivery Method Room Air Room Air Room Air 05/26/23 13:21 05/26/23 13:20 05/26/23 13:35 Temperature 97.4 F L 96.9 F L Pulse Rate 74 74 77 Respiratory Rate 15 14 18 Blood Pressure 140/90 140/90 157/93 H Pulse Oximetry 100 96 93 Oxygen Delivery Method Room Air Room Air Oxygen Delivery Method Room Air Oxygen Flow Rate 0 Narrative Exam Narrative: GEN: no acute distress CV: regular rate and rhythm, no murmurs PULM: clear bilaterally ABD: soft, nontender EXT: warm and well perfused, R leg erythema still present, less tender and covered in clear dressings after recent I&D Objective Labs 05/26/23 14:44 05/26/23 14:44 Labs: Laboratory Results - last 24 hr 05/26/23 05/26/23 05/26/23 09:30 14:44 14:44 WBC 15.6 H RBC 3.97 L Hgb 11.1 L Hct 33.9 L MCV 85.6 MCH 27.9 MCHC 32.6 RDW 14.7 Plt Count 408 H Neut % (Auto) 91.3 H Lymph % (Auto) 5.4 L [place] % (Auto) 2.2 L Eos % (Auto) 0.8 L Baso % (Auto) 0.3 Neut # (Auto) 34760 H Lymph # (Auto) 800 L [place] # (Auto) 300 Eos # (Auto) 100 Baso # (Auto) 0 Sodium 134 L Potassium 4.3 Chloride 101 Carbon Dioxide 26 BUN 10 Creatinine 0.49 L Estimated GFR > 60 BUN/Creatinine Ratio 20.4 Glucose 158 H Calcium 8.7 Vancomycin Trough 16.0 PFSH Medical History Hypertension Smoker Social History household members: family Smoking Status: Current some day smoker alcohol intake: current Assessment & Plan Assessment & Plan narrative: 1. Cellulitis with abscess of her R lower extremity -no evidence of sepsis. Did not respond to antibiotics initially and coalesced into drinable collection. S/p I&D in the OR on 05/26/23 with surgery. -continue treatment with vancomycin and ceftriaxone for concern for MRSA as has pus on exam, also history of substance abuse, also gram negative and anaerobe coverage with unasyn due to injury from cats -follow up cultures from OR drainage on 05/26/23. 2. Trichomonas in urine -plan for treatment with 500mg BID flagyl for 7 days -informed patient about STD and to consider informing partners -send GC and chlamydia per CDC recommendations 3. Elevated BP - likely secondary to pain, continue to monitor. I have obtained history and discussed plan with patient. Discussed with surgery as noted above as well. I have discussed plan of care with bedside nurse and patient. I have reviewed, labs, imaging. CODE: Full Proxy: Dinesh Lunsford, father\ Dispo: inpatient, anticipate discharge home, timing in the next 1-2 days depending on culture results
[2023-05-26] MEDS: HEPARIN 5,000 UNIT/ML VIAL 5000 UNIT SUBCUT (20:16)
[2023-05-26 20:44] LABS: Urine N gonorrhoeae NOT DETECTED
[2023-05-26 20:53] LABS: Urine Chlamydia NOT DETECTED
[2023-05-27 00:17] VITALS: BP 146/90; PULSE 90; RESP 16; TEMP 36.7; O2SAT 97
[2023-05-27] MEDS: VANCOMYCIN 1,250 MG/250 ML PIGGYBACK 250 MG IV ×2 (02:12→09:39)
[2023-05-27] MEDS: AMPICILLIN/SULBACTAM 3 GM 3 GM in SODIUM CHLORIDE 0.9% 100 ML IV ×3 (03:39→13:31)
[2023-05-27] MEDS: SODIUM CHLORIDE 0.9% 1,000 ML 100 ML IV (05:44)
[2023-05-27] MEDS: OXYCODONE/ACETAMINOPHEN 5/325 TABLET 1 TAB PO ×3 (05:44→15:02)
[2023-05-27 06:18] LABS: Blood Urea Nitrogen 12 mg/dL (7-17); Calcium 8.7 mg/dL (8.4-10.2); Carbon Dioxide 27 mmol/L (22-32); Chloride 103 mmol/L (98-107); Estimated Glomerular Filt Rate > 60 mL/min (>60); Glucose 106 mg/dL (70-100); HEMOLYSIS < 15 (0-50); Magnesium 2.2 mg/dL (1.6-2.3); Potassium 4.3 mmol/L (3.4-5.1); Sodium 138 mmol/L (137-145)
[2023-05-27 06:23] LABS: Add Manual Diff / Slide Review NO; Basophils Absolute Auto 0 /uL (0-100); Basophils Percent Auto 0.2 % (0-2); Eosinophils Absolute Auto 0 /uL (0-450); Hematocrit 33.5 % (36-46); Hemoglobin 10.9 g/dL (12.0-16.0); Lymphocytes Absolute Auto 1200 /uL (1100-4500); Lymphocytes Percent Auto 6.9 % (25-40); Mean Corpuscular HGB Conc 32.5 % (30-36); Mean Corpuscular Hemoglobin 27.6 PG (26-34); Monocytes Absolute Auto 500 /uL (0-900); Monocytes Percent Auto 3.1 % (3-14); Neutrophils Absolute Auto 15100 /uL (1500-7000); Neutrophils Percent Auto 89.8 % (50-75); Platelet Count 413 X10^3/uL (150-400); Red Blood Cell Count 3.94 X10^6/uL (4.0-5.2); Red Cell Distribution Width 14.3 % (11.6-14.8); White Blood Cell Count 16.8 X10^3/uL (4.5-11.0)
[2023-05-27 06:33] VITALS: BP 159/94; PULSE 85; RESP 85; TEMP 36.3; O2SAT 98
[2023-05-27 07:00] VITALS: BP 178/106; PULSE 83; RESP 17; TEMP 36.2; O2SAT 98
[2023-05-27] MEDS: metroNIDAZOLE 500 MG TABLET PO (08:20)
[2023-05-27] MEDS: ACETAMINOPHEN 325 MG TABLET 650 MG PO (08:20)
[2023-05-27] MEDS: HEPARIN 5,000 UNIT/ML VIAL 5000 UNIT SUBCUT (08:20)
--- NOTE | 2023-05-27 10:16 | P.DS_ITS ---
History of Present Illness History of Present Illness Date Patient Seen: 05/27/23 Time Patient Seen: 10:17 Chief complaint: swollen rt leg Narrative: Ms. Lunsford is a 47W with no significant past medical history who presents to the hospital with leg pain and swelling. She has had some chills. She has kittens which have scratched her. She has some pus in the leg. Because of this she presented to the hospital. In the ED workup was done, patient initially afebrile, repeat was found febrile to 101, heart rate in 90s. Labs reviewed and notable for WBC 16.7, plts 295, creatinine 1.01. Lactate 2.8, resolved to 1.0 with fluids. Procal 0.11. UA showed trichomonas. She was given antibiotics and admitted for further treatment. Discharge Providers Provider Date of admission: 05/25/23 09:50 Discharge Date: 05/27/23 Consults: 05/23/23 15:46 Consult to [employer] - Log Brander Stat Comment: insurance issues / ? housing issues. [employer] Consult needed for:: Social Determinants issue 05/25/23 08:57 Consult to General Surgery Routine Comment: Consulting Provider: Brandy Bailey Reason for consultation: need for I&D L leg abscess 05/26/23 13:27 Consult to Dietitian, Adult Routine Comment: Reason For Exam: right lower estremity, ant tib wound Consult to Wound Care Routine Comment: Consulting Provider: [facility] Discharge provider: Magdy Castro DO Summary Hospital Course Discharge Diagnosis: 1. Cellulitis with abscess of her R lower extremity 2. Trichomonas in urine 3. Elevated BP Hospital Course: This is a 47 year old female admitted for a cellulitis of her R leg. Initial imaging showed no fluid collection but an abscess did develop and the following day surgery was consulted and performed an I&D. There is a resulting 2x3 cm woun d that will require daily dressing changes with wet to dry dressing changes on discharge. She was discharged on oral doxycycline. Urine culture grew trichomonas, and she will be treated with flagyl for another 4 days after discharge. Doxycycline was prescribed for another 14 days. She was also given a prescription for pain medication. Urine G/C was tested as well and was negative. Her BP was mildly elevated, and I recommend continued home monitoring and lifestyle interventions, along with continued pain control at home as well as PCP follow up. Follow up with primary care provider with possible referral to wound care is recommended in the next few days. Time Spent with Patient Time spent: Greater than 30 minutes Exam Vital Signs (past 8 hours): - 05/27/23 06:33 05/27/23 07:00 Temperature 97.4 F L 97.1 F L Pulse Rate 85 83 Respiratory Rate 85 H 17 Blood Pressure 159/94 H 178/106 H Pulse Oximetry 98 98 Oxygen Flow Rate 0 0 Oxygen Delivery Method Room Air Oxygen Flow Rate 0 Narrative Exam Narrative: GEN: no acute distress CV: regular rate and rhythm, no murmurs PULM: clear bilaterally ABD: soft, nontender EXT: warm and well perfused, R leg erythema improved, slightly present around 3x2 cm wound bed after surgery. Improved tenderness. Objective Labs 05/27/23 05:05 05/27/23 05:05 Labs: Laboratory Results - last 24 hr 05/26/23 05/26/23 05/26/23 09:30 14:44 14:44 WBC 15.6 H RBC 3.97 L Hgb 11.1 L Hct 33.9 L MCV 85.6 MCH 27.9 MCHC 32.6 RDW 14.7 Plt Count 408 H Neut % (Auto) 91.3 H Lymph % (Auto) 5.4 L [place] % (Auto) 2.2 L Eos % (Auto) 0.8 L Baso % (Auto) 0.3 Neut # (Auto) 64145 H Lymph # (Auto) 800 L [place] # (Auto) 300 Eos # (Auto) 100 Baso # (Auto) 0 Sodium 134 L Potassium 4.3 Chloride 101 Carbon Dioxide 26 BUN 10 Creatinine 0.49 L Estimated GFR > 60 BUN/Creatinine Ratio 20.4 Glucose 158 H Calcium 8.7 Magnesium Vancomycin Trough 16.0 Ur Chlamydia DNA (PCR) N gonorrhoeae DNA (PCR) 05/26/23 05/27/23 05/27/23 17:19 05:05 05:05 WBC 16.8 H RBC 3.94 L Hgb 10.9 L Hct 33.5 L MCV 85.0 MCH 27.6 MCHC 32.5 RDW 14.3 Plt Count 413 H Neut % (Auto) 89.8 H Lymph % (Auto) 6.9 L [place] % (Auto) 3.1 Eos % (Auto) 0.0 L Baso % (Auto) 0.2 Neut # (Auto) 67321 H Lymph # (Auto) 1200 [place] # (Auto) 500 Eos # (Auto) 0 Baso # (Auto) 0 Sodium 138 Potassium 4.3 Chloride 103 Carbon Dioxide 27 BUN 12 Creatinine 0.60 Estimated GFR > 60 BUN/Creatinine Ratio 20.0 Glucose 106 H Calcium 8.7 Magnesium 2.2 Vancomycin Trough Ur Chlamydia DNA (PCR) Not detected N gonorrhoeae DNA (PCR) Not detected PFSH Medical History Hypertension Smoker Social History household members: family Smoking Status: Current some day smoker alcohol intake: current Discharge Plan Discharge Plan Patient Disposition: Home Provider Discharge Comment: You were admitted to the hospital with cellulitis and abscess of your R leg. Continue antibiotic therapy at home until completion. You were also found to have trichomonas and will complete antibiotics at home for this. Recommend PCP follow up as soon as possible with referral to wound care likely to monitor your leg wound. Continue to change your dressing daily. Discharge orders & Medications Prescriptions: New metronidazole 500 mg Tablet 500 mg PO BID 4 Days Qty: 8 0RF doxycycline hyclate 100 mg tablet 100 mg PO BID 14 Days Qty: 28 0RF oxycodone 5 mg tablet 5 mg PO Q6H PRN (Reason: pain) 7 Days Qty: 20 0RF Medication counseling provided by Pharmacist: Yes Pharmacist Comment: Counseled by pharmacy technician assistant, Moody Hood Discharge Health Status Multidrug resistant organism: MRSA Diet/Activity/Treatments Diet: Diet as Tolerated and Regular Activity: As tolerated no restrictions Skin/Wound/Dressing Care Dressing: Wet to dry, daily dressing change Visit Report/Discharge Packet Instructions: How to Change a Wet to Dry Wound Dressing, DI for Incision and Drainage, How to Use Antibiotics [facility], [facility]: Wound Care Stand Alone Forms: Patient Portal/API, Stroke Signs & Symptoms Discharges patient from system. Discharge Date/Time: 05/27/23 15:04
[2023-05-27 12:00] VITALS: BP 170/96; PULSE 95; RESP 17; TEMP 36.3; O2SAT 98
--- NOTE | 2023-05-27 15:57 | CM.DPC ---
DCP Continued: [employer] reviewed EMR. Per hospitalist, will need OP wound care follow up. [employer] spoke with Paty in wound care office. Paty reported she received referral and would look into it. [employer] entered room and introduced self and role. Patient sitting up eating hummus. Patient reported wanting to go home and she would figure out a ride on her own. Patient reports she's independent at home and has a cane. Plan: dc home today with OP wound care. Transport with friend in POV. Cm team will continue to follow as needed. EDMOND Riojas
== END 2023-05-27 15:04 | disposition home or self-care (01) | DRG 383 ==
LOC: ED 14:04 → AC 18:12
PROVIDERS: Internal Medicine; Surgery; Admitting Provider Internal Medicine; Emergency Provider Emergency Medicine; Referring Provider Emergency Medicine; Visit Provider Internal Medicine
PROC: 0H9KXZZ Drainage of Right Lower Leg Skin, External Approach (ICD-10-PCS; principal; 2023-05-26 11:45)
DX: L03.115 Cellulitis of right lower limb (principal); I10 Essential (primary) hypertension; L50.9 Urticaria, unspecified; A59.00 Urogenital trichomoniasis, unspecified; F17.210 Nicotine dependence, cigarettes, uncomplicated
CPT/HCPCS: 10060; 36415; 71045; 73700; 80048; 80053; 80202; 80305; 81003; 81015; 83605; 83690; 83735; 84145; 85025; 85027; 85610; 85730; 87040; 87070; 87075; 87077; 87086; 87147; 87186; 87205; 87491; 87591; 93971; 96365; 96366; 96367; 99232; 99285; G0378; J0295; J0696; J1100; J1170; J1642; J1644; J2250; J2405; J2704; J3010

== ENCOUNTER → 2023-06-02 11:01 | Outpatient (CLI) | payer OTHER, MEDICAID, SELFPAY ==
[2023-05-23 22:05] VITALS: BMI 33.3
== END ==
PROVIDERS: Referring Provider Internal Medicine; Visit Provider Surgery
DX: T81.89XA Other complications of procedures, not elsewhere classified, initial encounter (principal); S81.801A Unspecified open wound, right lower leg, initial encounter; R60.0 Localized edema; L53.9 Erythematous condition, unspecified
CPT/HCPCS: 11042; 87070; 87075; 87205; 99203; 99213

== ENCOUNTER → 2023-06-10 10:46 | Outpatient (CLI) | payer OTHER, MEDICAID, SELFPAY ==
[2023-05-23 22:05] VITALS: BMI 33.3
== END ==
PROVIDERS: Referring Provider Internal Medicine; Visit Provider Surgery
DX: T81.89XA Other complications of procedures, not elsewhere classified, initial encounter (principal); S81.801A Unspecified open wound, right lower leg, initial encounter; I73.9 Peripheral vascular disease, unspecified; R60.0 Localized edema; L53.9 Erythematous condition, unspecified; M79.604 Pain in right leg
CPT/HCPCS: 11042; 99213

== ENCOUNTER → 2023-06-17 13:47 | Outpatient (CLI) | payer OTHER, MEDICAID, SELFPAY ==
[2023-05-23 22:05] VITALS: BMI 33.3
== END ==
PROVIDERS: Referring Provider Internal Medicine; Visit Provider Surgery
DX: S81.801A Unspecified open wound, right lower leg, initial encounter (principal); T81.31XA Disruption of external operation (surgical) wound, not elsewhere classified, initial encounter; R60.0 Localized edema; M79.604 Pain in right leg
CPT/HCPCS: 11042; 93926

== ENCOUNTER → 2023-06-17 15:47 | Outpatient (CLI) | payer OTHER, MEDICAID, SELFPAY ==
[2023-05-23 22:05] VITALS: BMI 33.3
--- NOTE | 2023-06-17 15:48 | DI.US.S_ITS ---
PROCEDURE: US ARTERIAL DUPLEX LE RT INDICATIONS: NON HEALING WOUND TECHNIQUE: Color and pulse Doppler interrogation was performed of the right and lower extremity arterial system, with image documentation. COMPARISON: None. FINDINGS: Common femoral artery: 140 cm/sec, with triphasic flow. Deep femoral artery: 66 cm/sec, with monophasic flow. Proximal superficial femoral artery: 116 cm/sec, with triphasic flow. Mid superficial femoral artery: 140 cm/sec, with monophasic flow. Distal superficial femoral artery: 182 cm/sec, with monophasic flow. Popliteal artery: 102 cm/sec, with monophasic flow. Posterior tibial artery: 93 cm/sec, with monophasic flow. Anterior tibial artery/dorsalis pedis: 81/97 cm/sec, with monophasic flow. Bruno-scale imaging description: No significant stenosis is identified on images. Waveform findings: Monophasic waveforms are seen from the mid SFA distally. IMPRESSION: No significant stenosis by imaging or velocity criteria, however waveform findings demonstrated change from triphasic to monophasic in the proximal/mid SFA. Given nonhealing wound, consider CT angiogram. Dictated by: Delfino Berg M.D. on 06/17/2023 at 16:48 Approved by: Delfino Berg M.D. on 06/17/2023 at 16:51
== END ==
PROVIDERS: Referring Provider Surgery; Visit Provider Surgery
DX: S81.801A Unspecified open wound, right lower leg, initial encounter (principal)
CPT/HCPCS: 93926

== ENCOUNTER → 2023-06-25 14:27 | Outpatient (CLI) | payer OTHER, MEDICAID, SELFPAY ==
[2023-05-23 22:05] VITALS: BMI 33.3
== END ==
PROVIDERS: Referring Provider Internal Medicine; Visit Provider Surgery
DX: T81.31XA Disruption of external operation (surgical) wound, not elsewhere classified, initial encounter (principal); S81.801A Unspecified open wound, right lower leg, initial encounter; R60.0 Localized edema
CPT/HCPCS: 11042

== ENCOUNTER → 2023-07-02 14:13 | Outpatient (CLI) | payer OTHER, MEDICAID, SELFPAY ==
[2023-05-23 22:05] VITALS: BMI 33.3
== END ==
PROVIDERS: Referring Provider Internal Medicine; Visit Provider Surgery
DX: S81.801A Unspecified open wound, right lower leg, initial encounter (principal); T81.31XA Disruption of external operation (surgical) wound, not elsewhere classified, initial encounter; R60.9 Edema, unspecified; L03.119 Cellulitis of unspecified part of limb; L53.9 Erythematous condition, unspecified; M79.604 Pain in right leg
CPT/HCPCS: 11042; 87070; 87077; 87186; 87205; 99213; 99214

== ENCOUNTER → 2023-07-09 14:22 | Outpatient (CLI) | payer OTHER, MEDICAID, SELFPAY ==
[2023-05-23 22:05] VITALS: BMI 33.3
== END ==
PROVIDERS: Referring Provider Internal Medicine; Visit Provider Physician Assistant
DX: T81.89XA Other complications of procedures, not elsewhere classified, initial encounter (principal); S81.801A Unspecified open wound, right lower leg, initial encounter; L03.119 Cellulitis of unspecified part of limb; R60.0 Localized edema; L53.9 Erythematous condition, unspecified; M79.604 Pain in right leg
CPT/HCPCS: 11042; 99214

== ENCOUNTER → 2023-07-23 09:48 | Outpatient (CLI) | payer OTHER, MEDICAID, SELFPAY ==
[2023-05-23 22:05] VITALS: BMI 33.3
== END ==
PROVIDERS: Referring Provider Internal Medicine; Visit Provider Physician Assistant
DX: T81.31XA Disruption of external operation (surgical) wound, not elsewhere classified, initial encounter (principal); L53.9 Erythematous condition, unspecified; S81.801A Unspecified open wound, right lower leg, initial encounter; I70.1 Atherosclerosis of renal artery; R60.0 Localized edema; M79.604 Pain in right leg; F17.200 Nicotine dependence, unspecified, uncomplicated
CPT/HCPCS: 11042; 75635; 99214; Q9967

== ENCOUNTER → 2023-07-23 11:46 | Outpatient (CLI) | payer OTHER, MEDICAID, SELFPAY ==
[2023-05-23 22:05] VITALS: BMI 33.3
--- NOTE | 2023-07-23 11:47 | DI.CT.S_ITS ---
PROCEDURE: CT ANGIO ABD AORTA RUNOFF INDICATIONS: Eval arterial status TECHNIQUE: After the administration of intravenous contrast, 2.5 mm sections acquired from T12 to the feet, with optional delayed image acquisition from the knees to the feet. 3-dimensional maximum intensity projection (MIP) coronal and sagittal reformats, and/or 3-dimensional volume rendering reformatting was then performed. For radiation dose reduction, the following was used: automated exposure control. COMPARISON: None. FINDINGS: Image quality: Excellent. Extravascular tissues: Lung bases are clear. Heart size is normal. Liver is normal in size and enhancement. Gallbladder is unremarkable. Biliary system is non dilated. Pancreas enhances normally. Spleen is normal in size and enhancement. No adrenal nodules. Kidneys are normal in size and enhancement, without hydronephrosis. Non opacified bowel loops demonstrate normal wall thickness and enhancement. The appendix is thin walled and gas filled. No free fluid or air. No retroperitoneal or mesenteric adenopathy. No ventral hernias. Bladder wall thickness is normal. No inguinal hernias or adenopathy. No suspicious bony lesions. No vertebral body compression fractures. Abdominal aorta: No stenosis or aneurysmal dilatation. No aortic dissection. The right renal artery is widely patent. A focal stenosis is present at the origin of the left artery. The SMA, ANDREA and celiac axis are widely patent. Right lower extremity: The right lower extremity arteries demonstrate normal course and caliber without stenosis or occlusion. Left lower extremity: The left lower extremity arteries demonstrate normal course and caliber without stenosis or occlusion. IMPRESSION: 1. No focal hemodynamically significant stenosis of the bilateral lower extremity arteries. 2. High-grade stenosis at the origin of the left renal artery. Dictated by: Domitila Aranda M.D. on 07/23/2023 at 13:55 Approved by: Domitila Aranda M.D. on 07/23/2023 at 13:59
== END ==
PROVIDERS: Referring Provider Physician Assistant; Visit Provider Physician Assistant
DX: T81.31XD Disruption of external operation (surgical) wound, not elsewhere classified, subsequent encounter (principal); I70.1 Atherosclerosis of renal artery
CPT/HCPCS: 75635; Q9967

== ENCOUNTER → 2023-08-06 13:55 | Outpatient (CLI) | payer OTHER, MEDICAID, SELFPAY ==
[2023-05-23 22:05] VITALS: BMI 33.3
== END ==
PROVIDERS: Referring Provider Internal Medicine; Visit Provider Surgery
DX: T81.31XD Disruption of external operation (surgical) wound, not elsewhere classified, subsequent encounter (principal); R60.0 Localized edema; L03.119 Cellulitis of unspecified part of limb; F17.200 Nicotine dependence, unspecified, uncomplicated; I70.1 Atherosclerosis of renal artery
CPT/HCPCS: 11042; 87070; 87075; 87077; 87186; 87205; 99213

== ENCOUNTER → 2023-08-16 14:07 | Outpatient (CLI) | payer OTHER, MEDICAID, SELFPAY ==
[2023-05-23 22:05] VITALS: BMI 33.3
== END ==
PROVIDERS: Referring Provider Internal Medicine; Visit Provider Surgery
DX: T81.31XD Disruption of external operation (surgical) wound, not elsewhere classified, subsequent encounter (principal); R60.0 Localized edema; L03.119 Cellulitis of unspecified part of limb; F17.200 Nicotine dependence, unspecified, uncomplicated; I70.1 Atherosclerosis of renal artery
CPT/HCPCS: 11042; 99213; 99214

== ENCOUNTER → 2023-08-19 11:43 | Outpatient (CLI) | payer OTHER, MEDICAID, SELFPAY ==
[2023-05-23 22:05] VITALS: BMI 33.3
== END ==
PROVIDERS: Referring Provider Internal Medicine; Visit Provider Surgery
DX: T81.31XA Disruption of external operation (surgical) wound, not elsewhere classified, initial encounter (principal); S81.801A Unspecified open wound, right lower leg, initial encounter; R60.0 Localized edema; L53.9 Erythematous condition, unspecified
CPT/HCPCS: 99213

== ENCOUNTER 2023-08-24 08:50 | Day surgery (SDC) | payer OTHER, MEDICAID, SELFPAY ==
[2023-05-23 22:05] VITALS: BMI 33.3
[2023-08-19 13:40] VITALS: BMI 32.5
[2023-08-24] VITALS (7 sets, daily range): BP systolic 136–158; BP diastolic 79–100; PULSE 66–90; RESP 11–19; TEMP 36.1–36.5; O2SAT 96–100; BMI 32.5
[2023-08-24] MEDS: LACTATED RINGERS 1,000 ML 42 ML IV (09:22)
--- NOTE | 2023-08-24 10:04 | PM.PREOP ---
Pre-operative Note COVID-19 COVID-19 status: Not tested Interval Note History & Physical reviewed/Exam performed by Physician: Yes Changes to H&P: No ASA Class (for procedural sedation): III
--- NOTE | 2023-08-24 10:40 | SUR.OPER ---
Supine on padded OR bed, head on pillow, arms secured on padded arm boards at <90 degrees abduction, legs uncrossed, safety belt at thigh, tape over blanket over lower legs.
[2023-08-24] MEDS: METHYLENE BLUE 50 MG/10 ML VIAL 15 MG INJ (10:43)
[2023-08-24] MEDS: BUPIVACAINE 0.5% (PF) 30 ML VIAL INJ (10:44)
--- NOTE | 2023-08-24 11:05 | PM.OP.1 ---
Operative Date/Time/Diagnoses Date of procedure: 08/24/23 Time of procedure: 11:05 Pre-op diagnosis: Right leg chronic wound Post-op diagnosis: same Procedure & Clinicians Procedure: Debridement of chronic wound of right lower extremity Same procedure as scheduled: Yes Surgeon: Gustavo Gann Anesthesia Type: General Operative Notes Procedure in detail: The patient is a 47-year-old woman who presents with a right leg pretibial chronic wound. She had been going to wound care but undermining was noted. She was consented for debridement in the operating room. The patient was brought to the operating room and general anesthesia was induced. Methylene blue was applied to the wound bed with a cotton swab and the swab was inserted into the areas of undermining in the superior medial and superior lateral quadrants of the wound. The wound was proximally 4 cm in diameter. The wound was prepped and draped with Betadine and a time-out was performed. A scalpel was used to excise small segments of skin in the direction of the undermining. You undermining appeared to extend about a cm in the superior medial direction and about half a cm in the superior lateral direction. Bleeding was controlled with cautery and pressure. There were some fibrinous exudate tracking along 1 of the fascial planes. This was debrided with a curette. The bed of the wound was also debrided with a curette. We then packed the wound with iodoform gauze followed by some 4x4s and a Coban wrap to apply gentle pressure to stop the bleeding. EBL: 10 mL Specimens: None Post-operative Condition: stable Disposition: PACU
[2023-08-24] MEDS: OXYCODONE IR 5 MG TABLET PO (11:32)
== END 2023-08-24 12:00 | disposition home or self-care (01) ==
PROVIDERS: Referring Provider Surgery; Visit Provider Surgery
PROC: (CPT 11042; principal; 2023-08-24 10:15)
DX: S81.801A Unspecified open wound, right lower leg, initial encounter (principal)
CPT/HCPCS: 11042; J1100; J1885; J2250; J2405; J3010; Q9968

== ENCOUNTER → 2023-08-26 10:42 | Outpatient (CLI) | payer OTHER, MEDICAID, SELFPAY ==
[2023-05-23 22:05] VITALS: BMI 33.3
== END ==
PROVIDERS: Referring Provider Internal Medicine; Visit Provider Surgery
DX: T81.31XA Disruption of external operation (surgical) wound, not elsewhere classified, initial encounter (principal); S81.801A Unspecified open wound, right lower leg, initial encounter; R60.0 Localized edema
CPT/HCPCS: 11043

== ENCOUNTER → 2023-09-02 10:26 | Outpatient (CLI) | payer OTHER, MEDICAID, SELFPAY ==
[2023-05-23 22:05] VITALS: BMI 33.3
== END ==
PROVIDERS: Referring Provider Internal Medicine; Visit Provider Surgery
DX: T81.31XA Disruption of external operation (surgical) wound, not elsewhere classified, initial encounter (principal); S81.801A Unspecified open wound, right lower leg, initial encounter; R60.0 Localized edema
CPT/HCPCS: 11042; 99213

== ENCOUNTER 2023-09-05 17:48 | Observation (INO) | payer OTHER, MEDICAID, SELFPAY ==
[2023-05-23 22:05] VITALS: BMI 33.3
[2023-09-05] VITALS (12 sets, daily range): BP systolic 177–202; BP diastolic 98–113; PULSE 70–101; RESP 16–19; TEMP 36.8; O2SAT 96–99; BMI 32.8
--- NOTE | 2023-09-05 18:31 | ED_ITS ---
HPI - General Adult General Chief complaint: Upper Respiratory Symptoms Stated complaint: seen [facility] 09/04 sym. nt improving Time Seen by Provider: 09/05/23 18:25 Source: patient Mode of arrival: Ambulatory History of Present Illness HPI narrative: 48-year-old woman with a history of methamphetamine use disorder with recent hospital admission for strep a cellulitis of the right lower extremity with significant debridement currently followed by wound clinic presents with 4 days of increasing sore throat, chills and sweats and increasing myalgias. She is having increasing difficulty in swallowing secondary pain. She has been using ibuprofen and Tylenol. She was seen in the walk-in clinic yesterday with COVID/influenza/RSV/rapid strep all negative. She was started on amoxicillin and she has taken 2 doses today but is getting worse and comes in for further evaluation. She does note that she used some methamphetamine late last night which may partially explain some of her significantly abnormal vital signs. She complains of jaw pain, difficulty opening her mouth and pain down the right side of her neck. She is not complaining of cough, wheezing, dyspnea, orthopnea, palpitations or chest pain. No nausea vomiting, diarrhea or dysuria Related Data Home Medications Medication Instructions Recorded Confirmed oxycodone 5 mg tablet 5 mg PO Q6H PRN pain 08/24/23 08/24/23 sulfamethoxazole 800 1 tab PO BID 08/24/23 08/24/23 mg-trimethoprim 160 mg tablet Previous Rx's Medication Instructions Recorded oxycodone 5 mg tablet 5 mg PO Q8H PRN pain #14 tabs 08/26/23 Allergies Allergy/AdvReac Type Severity Reaction Status Date / Time latex Allergy Mild Hives Verified 08/24/23 09:01 Review of Systems Review of Systems Narrative: Pertinent positive and negative findings as per HPI Patient History Medical History Psoriasis Hypertension Smoker Surgical History (Updated 08/19/23 @ 13:41 by Eryn Cope RN) History of incision and drainage (05/26/23) Hx of hysterectomy Social History household members: family Smoking Status: Current some day smoker alcohol intake: former Smoking Status: Current some day smoker alcohol intake frequency: holidays/special occasions only Substance Use Type: marijuana, amphetamines and methamphetamine Exam Initial Vital Signs Initial Vital Signs: Vital Signs Temperature 98.2 F 09/05/23 18:02 Pulse Rate 101 H 09/05/23 18:02 Respiratory Rate 16 09/05/23 18:02 Blood Pressure 194/113 H 09/05/23 18:02 Pulse Oximetry 99 09/05/23 18:02 Oxygen Delivery Method Room Air 09/05/23 18:02 General: Chronically ill-appearing, in no acute distress. Able to give a complete and coherent history. Well-nourished well-developed HEENT: Moist mucous membranes, normal sclera with reactive pupils, voice is quite hoarse. She has significant right-sided palatal at least cellulitis with purulent exudate. I am concerned that this may be a retropharyngeal abscess. This is not a peritonsillar abscess. She also has notable swelling and tenderness at the angle of the jaw on the right side significant fullness down the anterior cervical chain on the right side of her neck. Tympanic membranes are not erythematous and are slightly retracted bilaterally Respiratory: Lungs are clear to auscultation, no wheezing no rales no rhonchi. Full and symmetrical air movement Cardiac: Regular rate and rhythm no murmurs no bruits Abdomen: Soft, nontender, good bowel tones, no flank pain Skin: Warm and dry, no rashes Neurologic: Grossly neurologically intact with no obvious asymmetries or abnormalities Extremities: No trauma, distal hyperemia of the hands consistent with her methamphetamine use and poor lymphangitic return. She has a wound care dressing in place over the right lower extremity that is removed. Psych: Cooperative, appropriate insight and affect, fluent speech and no response to internal stimuli Course Orders Ordered: ED Orders 09/05/23 18:42 CT soft tissue neck w con Stat 09/05/23 18:55 Complete Blood Count AUTO DIFF Stat Comprehensive Metabolic Panel Stat Lactate (Lactic Acid) Stat Procalcitonin Stat 09/05/23 19:15 Blood Culture Stat 09/05/23 19:20 Throat Culture Stat Hydromorphone HCl (Hydromorphone 0.5 Mg Inj) 0.5 mg IV Q15MIN PRN PRN Reason: Pain, Vancomycin HCl (Vancomycin) 1,000 mg in 200 mls @ 200 mls/hr IV NOW CARLITO Last Infusion: 09/05/23 21:15 Dose: Infused Documented By: Admin: 09/05/23 19:57 Dose: 200 mls/hr Documented By: KEVIN Vancomycin HCl (Vancomycin) 750 mg in 150 mls @ 150 mls/hr IV NOW CARLITO Vancomycin HCl/Dextrose (Vancomycin) 1,500 mg in 300 mls @ 150 mls/hr IV Q12H CARLITO Vancomycin HCl (Vancomycin Per Pharmacy) 1 request MISC NOW PRN PRN Reason: retropharyngeal abscess Discontinued Medications Sodium Chloride (Normal Saline 0.9%) 1,000 mls @ 1,000 mls/hr IV BOLUS ONE Stop: 09/05/23 19:36 Last Infusion: 09/05/23 21:15 Dose: Infused Documented By: Admin: 09/05/23 19:15 Dose: 1,000 mls/hr Documented By: DANNI Piperacillin Sod/Tazobactam (Sod 4.5 gm/ Sodium Chloride) 100 mls @ 200 mls/hr IV NOW ONE Stop: 09/05/23 18:51 Last Infusion: 09/05/23 20:01 Dose: Infused Documented By: Admin: 09/05/23 19:15 Dose: 200 mls/hr Documented By: DANNI Ketorolac Tromethamine (Ketorolac 30 Mg/Ml Vial) 15 mg IV NOW ONE Stop: 09/05/23 18:38 Last Admin: 09/05/23 19:14 Dose: 15 mg Documented By: DANNI Vital Signs Vital signs: Vital Signs - 8 hr 09/05/23 18:02 09/05/23 19:49 09/05/23 20:00 Temperature 98.2 F Pulse Rate 101 H 92 H 89 Respiratory Rate 16 16 Blood Pressure 194/113 H Pulse Oximetry 99 96 97 Oxygen Delivery Method Room Air Room Air 09/05/23 20:30 09/05/23 21:00 09/05/23 21:14 Temperature Pulse Rate 83 82 Respiratory Rate 19 Blood Pressure 194/100 H 194/100 H Pulse Oximetry 96 97 Oxygen Delivery Method 09/05/23 21:14 09/05/23 21:30 09/05/23 21:31 Temperature Pulse Rate 83 77 Respiratory Rate Blood Pressure 199/103 H Pulse Oximetry 98 97 Oxygen Delivery Method 09/05/23 21:31 Temperature Pulse Rate 79 Respiratory Rate Blood Pressure Pulse Oximetry 97 Oxygen Delivery Method Medical Decision Making Lab Data 09/05/23 18:55 09/05/23 18:55 Labs: Lab Results 09/05/23 Range/Units 18:55 WBC 16.2 H (4.5-11.0) X10^3/uL RBC 5.13 (4.0-5.2) X10^6/uL Hgb 14.1 (12.0-16.0) g/dL Hct 42.7 (36-46) % MCV 83.3 (80-100) fL MCH 27.6 (26-34) PG MCHC 33.1 (30-36) % RDW 15.0 H (11.6-14.8) % Plt Count 261 (150-400) X10^3/uL Neut % (Auto) 84.1 H (50-75) % Lymph % (Auto) 10.0 L (25-40) % [place] % (Auto) 5.5 (3-14) % Eos % (Auto) 0.1 L (2-4) % Baso % (Auto) 0.3 (0-2) % Neut # (Auto) 68965 H (8307-9038) /uL Lymph # (Auto) 1600 (0970-9656) /uL [place] # (Auto) 900 (0-900) /uL Eos # (Auto) 0 (0-450) /uL Baso # (Auto) 0 (0-100) /uL Sodium 136 L (137-145) mmol/L Potassium 4.2 (3.4-5.1) mmol/L Chloride 102 (98-107) mmol/L Carbon Dioxide 24 (22-32) mmol/L BUN 16 (7-17) mg/dL Creatinine 0.60 (0.52-1.04) mg/dL Estimated GFR > 60 (>60) mL/min BUN/Creatinine Ratio 26.7 H (6-22) Glucose 116 H (70-100) mg/dL Lactate 0.9 (0.7-2.1) mmol/L Calcium 10.1 (8.4-10.2) mg/dL Total Bilirubin 0.6 (0.2-1.3) mg/dL AST 25 (14-36) IU/L ALT 31 (<35) IU/L Alkaline Phosphatase 114 (38-126) U/L Total Protein 8.4 H (6.3-8.2) g/dL Albumin 4.3 (3.5-5.0) g/dL Globulin 4.1 (1.7-4.1) g/dL Albumin/Globulin Ratio 1.0 (1.0-2.8) Procalcitonin 0.12 (<0.5) ng/mL MDM Narrative Medical decision making narrative: CC: Worsening throat pain Complicating co-morbidities: Methamphetamine use, tobacco abuse, denies any IV drug use Data collected from: patient Medical records reviewed: Hospital records from May 27 discharge for right anterior tibial abscess with surgical debridement review Differential considered: Peritonsillar cellulitis, retropharyngeal abscess, Roberto's angina, sepsis Exam documented above, pertinent findings include: Impressive right-sided posterior cellulitis with exudate, fullness extending to the angle of the jaw and down the anterior portion of the neck. Tachycardia without murmurs abdomen is soft Lab Test results independently reviewed as above. Pertinent findings: CBC is 16.2 which is her baseline. No acute anemia Chemistries are reassuring Imaging studies independently reviewed: CT scan is reviewed. Formal radiology read indicates Neck spaces: Enlarged, heterogeneous, edematous and hyperemic palatine tonsils causing marked nasopharyngeal airway narrowing to smallest caliber of 4 mm. There is diffuse thickening of the adenoid pad. There are no parapharyngeal fluid collections. Mild right parapharyngeal fluid and edema and fat stranding anterior to the right carotid sheath. No prevertebral or retropharyngeal effusion. Distally, the epiglottis and larynx appear normal. IMPRESSION: 1. Moderate, heterogeneous peritonsillar and parapharyngeal inflammation and edema without circumscribed abscess. 2. Tonsillar enlargement narrows the airway. 4 mm diameter at narrowest point. 3. Bulky right jugulodigastric lymph node, most likely reactive. 4. Incidental note of advanced carotid calcification on the right. Consultations: Discussion with ENT physician, Dr. Corral. No drainable abscess, agrees with antibiotics and steroids Hospitalist, Dr. Polo Treatments: Vancomycin, Zosyn, ceftriaxone, pain control and nausea control Re-evaluations: Patient is re-evaluated noting her blood pressure is significantly elevated. I suspect part of this is secondary to her methamphetamine use last night and she reports that part is baseline known primary hypertension that she is not treating. She is otherwise asymptomatic at this point. We will begin lisinopril at 20 mg Discussion: 48-year-old woman with right peritonsillar and parapharyngeal inflammation and edema consistent with cellulitis without circumscribed abscess with beginning of airway narrowing. She does have a history of methamphetamine use and is at risk for worsening complications. Have recommended hospital admission for IV antibiotics and further evaluation until the peritonsillar cellulitis begins to improve. There is no indication for surgical intervention at this point. She is not septic. Airway is stable and she does not require intubation. Reviewed with her the recommendations for Hospital admission and she agrees. Discharge Plan Departure Patient Disposition: Admitted as Observation Clinical Impression: Peritonsillar cellulitis, Cellulitis of parapharyngeal space Hypertension Qualifiers: Hypertension type: primary hypertension Qualified Code(s): I10 - Essential (primary) hypertension
--- NOTE | 2023-09-05 18:33 | PC.NURSE ---
Pt states that she was seen at the Urgent care clinic yesterday because she was having a sore throat that got worse over the course of 3 days. Pt reports that they tested her for covid, flu and strep and said that all the testing came back negative. A throat swab was sent for culture and the provider at the clinic wrote a prescription for abx for patient. Patient has only taken one dose of the prescribed medication because she was unable to get to the pharmacy to pick it up yesterday. Pain on palpation of left side of throat and pt says that it hurts to swallow. L tonsil is swollen with white patches. Pt reports that the pain in her throat radiates down her neck. Pt denies any fevers but states that she has had the chills. Pt does have hx of cellulitis on her left lower leg and recently had surgery on wound.
--- NOTE | 2023-09-05 18:42 | DI.CT.S_ITS ---
PROCEDURE: CT SOFT TISSUE NECK W CON INDICATIONS: peritonsillar abscesss vs deeper post phrangeal abscess/ludw TECHNIQUE: After the administration of intravenous contrast, 3.0 mm axial sections acquired from the sella to the aortic arch. Additional oblique axial 3.0 mm sections acquired through the pharynx. 3 mm thick coronal and sagittal reformats were generated. For radiation dose reduction, the following was used: automated exposure control. COMPARISON: None. FINDINGS: Image quality: Excellent. Lymph nodes: There is a bulky right jugulodigastric lymph node measuring 1.8 x 2.0 cm. A few other cervical chain lymph nodes are prominent on the right. No supraclavicular adenopathy. No suspicious posterior triangle adenopathy. Vessels: Visualized vasculature appears patent. Incidental note of heavy calcification in the right internal carotid artery origin. Mild left carotid bulb calcification. Neck spaces: Enlarged, heterogeneous, edematous and hyperemic palatine tonsils causing marked nasopharyngeal airway narrowing to smallest caliber of 4 mm. There is diffuse thickening of the adenoid pad. There are no parapharyngeal fluid collections. Mild right parapharyngeal fluid and edema and fat stranding anterior to the right carotid sheath. No prevertebral or retropharyngeal effusion. Distally, the epiglottis and larynx appear normal. Glands: Parotid glands, submandibular glands, and thyroid gland all demonstrate symmetry. Miscellaneous: Visualized brain and orbits appear normal. Lung apices appear clear. Superficial soft tissues appear normal. Bones: No suspicious bony lesions. Visualized sinuses and mastoids appear unremarkable. IMPRESSION: 1. Moderate, heterogeneous peritonsillar and parapharyngeal inflammation and edema without circumscribed abscess. 2. Tonsillar enlargement narrows the airway. 4 mm diameter at narrowest point. 3. Bulky right jugulodigastric lymph node, most likely reactive. 4. Incidental note of advanced carotid calcification on the right. Dictated by: Carmita Humphrey M.D. on 09/05/2023 at 19:34 Approved by: Carmita Humphrey M.D. on 09/05/2023 at 19:47
[2023-09-05 19:11] LABS: Add Manual Diff / Slide Review NO; Basophils Absolute Auto 0 /uL (0-100); Basophils Percent Auto 0.3 % (0-2); Eosinophils Absolute Auto 0 /uL (0-450); Eosinophils Percent Auto 0.1 % (2-4); Hematocrit 42.7 % (36-46); Hemoglobin 14.1 g/dL (12.0-16.0); Lymphocytes Absolute Auto 1600 /uL (1100-4500); Mean Corpuscular HGB Conc 33.1 % (30-36); Mean Corpuscular Hemoglobin 27.6 PG (26-34); Mean Corpuscular Volume 83.3 fL (80-100); Monocytes Absolute Auto 900 /uL (0-900); Monocytes Percent Auto 5.5 % (3-14); Neutrophils Absolute Auto 13600 /uL (1500-7000); Neutrophils Percent Auto 84.1 % (50-75); Platelet Count 261 X10^3/uL (150-400); Red Blood Cell Count 5.13 X10^6/uL (4.0-5.2); White Blood Cell Count 16.2 X10^3/uL (4.5-11.0)
[2023-09-05] MEDS: KETOROLAC 30 MG/ML VIAL 15 MG IV (19:14)
[2023-09-05] MEDS: PIPERACILLIN/TAZO 4.5 GM in SODIUM CHLORIDE 0.9% 100 ML IV (19:15)
[2023-09-05] MEDS: SODIUM CHLORIDE 0.9% 1,000 ML 1000 ML IV (19:15)
[2023-09-05 19:21] LABS: Alanine Aminotransferase 31 IU/L (<35); Albumin 4.3 g/dL (3.5-5.0); Alkaline Phosphatase 114 U/L (38-126); Aspartate Aminotransferase 25 IU/L (14-36); BUN Creatinine Ratio 26.7 (6-22); Bilirubin Total 0.6 mg/dL (0.2-1.3); Blood Urea Nitrogen 16 mg/dL (7-17); Calcium 10.1 mg/dL (8.4-10.2); Carbon Dioxide 24 mmol/L (22-32); Chloride 102 mmol/L (98-107); Estimated Glomerular Filt Rate > 60 mL/min (>60); Globulin 4.1 g/dL (1.7-4.1); Glucose 116 mg/dL (70-100); HEMOLYSIS < 15 (0-50); Lactate (Lactic Acid) 0.9 mmol/L (0.7-2.1); Potassium 4.2 mmol/L (3.4-5.1); Sodium 136 mmol/L (137-145); Total Protein 8.4 g/dL (6.3-8.2)
[2023-09-05 19:37] LABS: Procalcitonin 0.12 ng/mL (<0.5)
[2023-09-05] MEDS: VANCOMYCIN 1,000 MG/200 ML PIGGYBACK 200 MG IV (19:57)
[2023-09-05] MEDS: methylPREDNISolone 125 MG/2 ML VIAL IV (22:19)
[2023-09-05] MEDS: VANCOMYCIN 750 MG/150 ML PIGGYBACK 150 MG IV (22:59)
[2023-09-05] MEDS: HYDROMORPHONE 0.5 MG INJ IV (23:14)
[2023-09-06] VITALS (8 sets, daily range): BP systolic 139–175; BP diastolic 78–102; PULSE 72–86; RESP 18; TEMP 35.9–36.2; O2SAT 95–99; BMI 32.5
[2023-09-06] MEDS: SODIUM CHLORIDE 0.9% 1,000 ML 125 ML IV (00:17)
[2023-09-06] MEDS: lisinopriL 20 MG TABLET PO (00:19)
[2023-09-06] MEDS: PIPERACILLIN/TAZO 3.375 GM in SODIUM CHLORIDE 0.9% 100 ML IV ×2 (00:20→09:15)
[2023-09-06] MEDS: OXYCODONE IR 5 MG TABLET PO ×2 (01:11→09:02)
--- NOTE | 2023-09-06 01:29 | PC.ADMIT ---
Patient admitted to room 212 at 0020 per stretcher but able to ambulate in room independently. Is alert and oriented. Complained of pain in throat; posterior oral pharynx is swollen, erythemic including upper palate with visible white patches on right side. She had been medicated in ER with Dilaudid prior to being brought up to room and stated pain had improved but following admission she was given oxycodone as well. She states her throat is sore with swallowing but denies any choking although stated she sometimes feels like the liquid she drinks is going to come back up through her nose. Did observe her drinking water and had no difficulty. Breath sounds are CTA with RA sat of 98%; placed on continuous oximetry per MD order. HRR w/elevated BP of 169/102 and was given Lisinopril ordered by ER MD and Dr. Polo was made aware of BP when he saw patient via mobile camera. Denied nausea. BT present and abdomen is soft. She has erythemic skin on bilateral hands/feet as well as white lesions on bilateral elbows which she states is from psoriasis. She also has scattered scratches which she stated is from her cat. Wound to right LE is covered with an allevyn type dressing and there is a small-moderate amount of dark drainage; has stockinette over right LE. Patient stated she sees wound care weekly and changes the dressing herself q2d. Wound not observed at this time as patient was told in ER that we do not have the needed supplies; message left with wound care clinic so we can obtain needed supplies to change dressing later today. Calf SCD applied to left leg only at this time until further information provided by wound care. Fall risk is moderate but patient verbalizes understanding to call when needing to get out of bed related to use of SCD's as well as IVF; alarm not activated at this time. Oriented to call light and bed controls. Dr. Polo visited with patient via mobile camera and discussed plan of care with patient. [id number] Jennifer Admission Note: The patient,Ruthy Lunsford,48 y/o, was given written information regarding hospital policies, unit procedures and contact persons. Patient's smoking status: Current some day smoker. Vital Signs - 8 hr 09/05/23 18:02 09/05/23 19:49 09/05/23 20:00 Temperature 98.2 F Pulse Rate 101 H 92 H 89 Respiratory Rate 16 16 Blood Pressure 194/113 H Pulse Oximetry 99 96 97 Oxygen Delivery Method Room Air Room Air Oxygen Flow Rate 09/05/23 20:30 09/05/23 21:00 09/05/23 21:14 Temperature Pulse Rate 83 82 Respiratory Rate 19 Blood Pressure 194/100 H 194/100 H Pulse Oximetry 96 97 Oxygen Delivery Method Oxygen Flow Rate 09/05/23 21:14 09/05/23 21:30 09/05/23 21:31 Temperature Pulse Rate 83 77 Respiratory Rate Blood Pressure 199/103 H Pulse Oximetry 98 97 Oxygen Delivery Method Oxygen Flow Rate 09/05/23 21:31 09/05/23 22:00 09/05/23 22:00 Temperature Pulse Rate 79 78 Respiratory Rate Blood Pressure 184/100 H Pulse Oximetry 97 97 Oxygen Delivery Method Oxygen Flow Rate 09/05/23 22:30 09/05/23 22:30 09/05/23 23:00 Temperature Pulse Rate 82 72 Respiratory Rate Blood Pressure 177/110 H Pulse Oximetry 98 97 Oxygen Delivery Method Oxygen Flow Rate 09/05/23 23:00 09/05/23 23:30 09/05/23 23:30 Temperature Pulse Rate 70 Respiratory Rate Blood Pressure 202/111 H 177/98 H Pulse Oximetry 98 Oxygen Delivery Method Oxygen Flow Rate 09/06/23 00:00 09/06/23 00:00 09/06/23 00:19 Temperature Pulse Rate 74 74 Respiratory Rate Blood Pressure 175/98 H 169/102 H Pulse Oximetry 99 Oxygen Delivery Method Oxygen Flow Rate 09/06/23 00:21 09/06/23 00:30 Temperature 96.7 F L Pulse Rate 74 Respiratory Rate 18 Blood Pressure 169/102 H Pulse Oximetry 98 Oxygen Delivery Method Room Air Oxygen Flow Rate 0
--- NOTE | 2023-09-06 02:44 | PM.HP.1 ---
History of Present Illness History of Present Illness Chief complaint: seen [facility] 09/04 sym. nt improving Narrative: 48 years old female with history of methamphetamine abuse, psoriasis, renal artery stenosis, smoking presents to the ER with increased difficulty swallowing, sore throat, chills, myalgia in the last 4 days. The patient was seen in walk-in clinic yesterday and had rapid strep/COVID/influenza/RSV tests negative. She was sent home on Amoxicyclin and had 2 doses so far. She also tried ibuprofen and Tylenol. Today she got worse and came to the ED for further evaluation. The patient was hospitalized for strep cellulitis right lower extremity and had surgical debridement follow-up with wound clinic. She was on Bactrim for 5 days. Denies any other symptoms. Initial laboratory shows WBC 16.2, lactic acid 0.9, procalcitonin 0.12. CT scan of the head and neck shows moderate peritonsillar and parapharyngeal inflammation and edema without circumscribed abscess. Bulky right jugulodigastric lymph nodes. The case was discussed with ENT Dr. Corral and recommended admission for IV antibiotics. In the ER she was given Toradol, methylprednisolone 125 mg IV, IV fluids, Zosyn and vancomycin. PFSH Medical History Psoriasis Hypertension Smoker Surgical History (Updated 08/19/23 @ 13:41 by Eryn Cope RN) History of incision and drainage (05/26/23) Hx of hysterectomy Social History household members: none Smoking Status: Current some day smoker alcohol intake: current Meds Home Medications and Allergies Home Medications Medication Instructions Recorded Confirmed Type oxycodone 5 mg tablet 5 mg PO Q6H PRN pain 08/24/23 09/06/23 History acetaminophen 325 mg tablet 650 mg PO Q4H PRN pain 09/06/23 09/06/23 History amoxicillin 500 mg capsule 500 mg PO BID 09/06/23 09/06/23 History ibuprofen 200 mg tablet 400 mg PO Q6H PRN pain 09/06/23 09/06/23 History Allergies Allergy/AdvReac Type Severity Reaction Status Date / Time latex Allergy Mild Hives Verified 08/24/23 09:01 Review of Systems Review of Systems ROS: Yes All systems reviewed with the patient and are negative except as otherwise documented Constitutional Constitutional: Reports as per HPI and Reports system reviewed and no additional complaints, except as documented Eyes Eyes: Reports as per HPI and Reports system reviewed and no additional complaints, except as documented ENT Ears, Nose, Mouth, and Throat: Yes as per HPI and Yes system reviewed and no additional complaints, except as documented Cardiovascular Cardiovascular: Reports system reviewed and no additional complaints, except as documented Respiratory Respiratory: Reports system reviewed and no additional complaints, except as documented Gastrointestinal Gastrointestinal: Reports system reviewed and no additional complaints, except as documented Genitourinary Genitourinary: Reports system reviewed and no additional complaints, except as documented Musculoskeletal Musculoskeletal: Reports system reviewed and no additional complaints, except as documented, Reports abnormal gait and Reports numbness Neurologic Neurologic: Reports system reviewed and no additional complaints, except as documented, Reports abnormal gait, Reports confusion and Reports numbness Psychiatric Psychiatric: Reports system reviewed and no additional complaints, except as documented and Reports confusion Exam Vital Signs (past 8 hours): - 09/05/23 19:49 09/05/23 20:00 09/05/23 20:30 Temperature Pulse Rate 92 H 89 83 Respiratory Rate 16 Blood Pressure Pulse Oximetry 96 97 96 Oxygen Delivery Method Room Air Oxygen Flow Rate 09/05/23 21:00 09/05/23 21:14 09/05/23 21:14 Temperature Pulse Rate 82 83 Respiratory Rate 19 Blood Pressure 194/100 H 194/100 H Pulse Oximetry 97 98 Oxygen Delivery Method Oxygen Flow Rate 09/05/23 21:30 09/05/23 21:31 09/05/23 21:31 Temperature Pulse Rate 77 79 Respiratory Rate Blood Pressure 199/103 H Pulse Oximetry 97 97 Oxygen Delivery Method Oxygen Flow Rate 09/05/23 22:00 09/05/23 22:00 09/05/23 22:30 Temperature Pulse Rate 78 Respiratory Rate Blood Pressure 184/100 H 177/110 H Pulse Oximetry 97 Oxygen Delivery Method Oxygen Flow Rate 09/05/23 22:30 09/05/23 23:00 09/05/23 23:00 Temperature Pulse Rate 82 72 Respiratory Rate Blood Pressure 202/111 H Pulse Oximetry 98 97 Oxygen Delivery Method Oxygen Flow Rate 09/05/23 23:30 09/05/23 23:30 09/06/23 00:00 Temperature Pulse Rate 70 Respiratory Rate Blood Pressure 177/98 H 175/98 H Pulse Oximetry 98 Oxygen Delivery Method Oxygen Flow Rate 09/06/23 00:00 09/06/23 00:19 09/06/23 00:21 Temperature 96.7 F L Pulse Rate 74 74 74 Respiratory Rate 18 Blood Pressure 169/102 H 169/102 H Pulse Oximetry 99 98 Oxygen Delivery Method Oxygen Flow Rate 0 09/06/23 00:30 Temperature Pulse Rate Respiratory Rate Blood Pressure Pulse Oximetry Oxygen Delivery Method Room Air Oxygen Flow Rate Oxygen Delivery Method Room Air Oxygen Flow Rate 0 Const General: cooperative, comfortable and well developed Orientation: alert and oriented x3 HENPA Head: normal to inspection, normocephalic and atraumatic Face and sinus: normal facial exam Mouth: oral mucosae normal and moist mucous membranes Throat: posterior oropharynx normal Eyes General: appearance normal, both eyes and all related structures Pupils: PERRL EOM: EOM intact bilaterally Neck Neck: normal visual inspection and full ROM Chest Chest: normal inspection of the chest Resp Effort & Inspection: normal respiratory effort and able to speak in complete sentences Auscultation: clear to auscultation bilaterally Cardio Palpation: normal PMI Rate: regular rate Rhythm: regular rhythm Heart Sounds: S1 normal and S2 normal GI Inspection: normal to inspection Palpation: soft and no hepatosplenomegaly Auscultation: normal bowel sounds Skin General: no rashes or lesions noted Lesions: no lesions Rashes: no rashes Trauma: no lacerations or abrasions Neuro General: patient alert, patient awake, patient oriented x3 and no focal motor deficits Cranial Nerves: CN's II-XI intact bilaterally Cognition: normal cognition Speech: speech normal Gait: normal gait Motor: muscle tone normal throughout Sensory Exam: no sensory deficits noted Extrem General: full ROM and no calf tenderness Psych Appearance: grossly normal Mental Status: mental status grossly normal Speech and Movement: speech and movement normal Objective Labs 09/05/23 18:55 09/05/23 18:55 Labs: Laboratory Results - last 24 hr 09/05/23 18:55 WBC 16.2 H RBC 5.13 Hgb 14.1 Hct 42.7 MCV 83.3 MCH 27.6 MCHC 33.1 RDW 15.0 H Plt Count 261 Neut % (Auto) 84.1 H Lymph % (Auto) 10.0 L [place] % (Auto) 5.5 Eos % (Auto) 0.1 L Baso % (Auto) 0.3 Neut # (Auto) 71540 H Lymph # (Auto) 1600 [place] # (Auto) 900 Eos # (Auto) 0 Baso # (Auto) 0 Sodium 136 L Potassium 4.2 Chloride 102 Carbon Dioxide 24 BUN 16 Creatinine 0.60 Estimated GFR > 60 BUN/Creatinine Ratio 26.7 H Glucose 116 H Lactate 0.9 Calcium 10.1 Total Bilirubin 0.6 AST 25 ALT 31 Alkaline Phosphatase 114 Total Protein 8.4 H Albumin 4.3 Globulin 4.1 Albumin/Globulin Ratio 1.0 Procalcitonin 0.12 Assessment & Plan Assessment and plan (1) Cellulitis of parapharyngeal space: Problem details: Meets the criteria for sepsis Status: Acute Plan: Continue with vancomycin and Zosyn IV Pain medications and Tylenol for fever as needed IV fluids Continue with steroids Follow-up on the blood cultures Follow-up with ENT if symptoms worsen (2) Hypertension: Problem details: Not on any home medications. Elevated blood pressure in the ER. Suspect due to pain. Qualifiers: Hypertension type: primary hypertension Qualified Code(s): I10 - Essential (primary) hypertension Status: Acute Plan: Hydralazine as needed (3) Chronic wound of extremity: Status: Acute Plan: Follow-up in wound clinic as outpatient (4) Amphetamine abuse: Status: Acute Plan: Monitor for any withdrawal symptoms Time Spent With Patient Time with patient: 50 to 69 minutes with 50% spent counseling/coordinating care Quality VTE Deep Vein Thrombosis/Pulmonary Embolism Present on Admission: No MIPS - Admit I confirm the patient?s Advance Care Plan is present, Code status is documented, Surrogate decision maker is in patient?s record [If Yes, STOP here]: Yes MIPS - Meds 'Current medications' to include all prescriptions, [id number] products, herbals, cannabis/cannabidiol products, and vitamin/mineral/dietary (nutritional) supplements. I have utilized all available resources to obtain, update, or review the patient?s current medications. [If Yes, STOP here]: Yes
[2023-09-06] MEDS: IBUPROFEN 400 MG TABLET PO (03:16)
[2023-09-06] MEDS: VANCOMYCIN 1,250 MG/250 ML PIGGYBACK 250 MG IV (08:05)
[2023-09-06 08:46] LABS: Alanine Aminotransferase 25 IU/L (<35); Albumin 3.7 g/dL (3.5-5.0); Alkaline Phosphatase 97 U/L (38-126); Aspartate Aminotransferase 20 IU/L (14-36); BUN Creatinine Ratio 29.5 (6-22); Bilirubin Total 0.4 mg/dL (0.2-1.3); Blood Urea Nitrogen 13 mg/dL (7-17); Carbon Dioxide 23 mmol/L (22-32); Chloride 106 mmol/L (98-107); Estimated Glomerular Filt Rate > 60 mL/min (>60); Globulin 3.7 g/dL (1.7-4.1); Glucose 152 mg/dL (70-100); HEMOLYSIS < 15 (0-50); Potassium 4.1 mmol/L (3.4-5.1); Sodium 136 mmol/L (137-145); Total Protein 7.4 g/dL (6.3-8.2)
[2023-09-06] MEDS: methylPREDNISolone 125 MG/2 ML VIAL 60 MG IV (09:16)
--- NOTE | 2023-09-06 11:21 | P.DS_ITS ---
History of Present Illness History of Present Illness Date Patient Seen: 09/06/23 Chief complaint: seen [facility] 09/04 sym. nt improving Narrative: Per admitting provider, 48 years old female with history of methamphetamine abuse, psoriasis, renal artery stenosis, smoking presents to the ER with increased difficulty swallowing, sore throat, chills, myalgia in the last 4 days. The patient was seen in walk-in clinic yesterday and had rapid strep/COVID/influenza/RSV tests negative. She was sent home on Amoxicyclin and had 2 doses so far. She also tried ibuprofen and Tylenol. Today she got worse and came to the ED for further evaluation. The patient was hospitalized for strep cellulitis right lower extremity and had surgical debridement follow-up with wound clinic. She was on Bactrim for 5 days. Denies any other symptoms. Initial laboratory shows WBC 16.2, lactic acid 0.9, procalcitonin 0.12. CT scan of the head and neck shows moderate peritonsillar and parapharyngeal inflammation and edema without circumscribed abscess. Bulky right jugulodigastric lymph nodes. The case was discussed with ENT Dr. Corral and recommended admission for IV antibiotics. In the ER she was given Toradol, methylprednisolone 125 mg IV, IV fluids, Zosyn and vancomycin. Discharge Providers Provider Date of admission: 09/05/23 22:50 Discharge Date: 09/06/23 Primary care physician: Doctor Ramya MD Consults: 09/06/23 00:44 Consult to Agency Trainer Routine Comment: Discharge provider: Magdy Castro DO Summary Hospital Course Discharge Diagnosis: 1) Paratonsillar celluiltis, posterior pharyngitis (2) Hypertension: (3) Chronic R wound of extremity: (4) Amphetamine abuse: Hospital Course: This is a 48 year old female who presented with worsening sore throat despite antibiotics. She received solumedrol, IV antibiotics of zosyn and vancomycin. CT showed peritonsillar swelling but no abscess. She felt improvement shortly after admission, with a decrease in swelling and improvement in pain. She was tolerating a diet without issue. For peritonsillar swelling, she was discharged on clindamycin which will cover appropriate oral anaerobes and MRSA. She was also discharged with a few days of prednisone given her improvement. Time Spent with Patient Time spent: Greater than 30 minutes Exam Vital Signs (past 8 hours): - 09/06/23 05:52 09/06/23 07:59 09/06/23 08:00 Temperature 96.7 F L Pulse Rate 75 86 72 Respiratory Rate 18 18 Blood Pressure 139/87 153/78 H Pulse Oximetry 95 97 97 Oxygen Flow Rate 0 0 0 09/06/23 09:05 Temperature 97.1 F L Pulse Rate Respiratory Rate Blood Pressure Pulse Oximetry Oxygen Flow Rate Oxygen Delivery Method Room Air Oxygen Flow Rate 0 Narrative Exam Narrative: Gen: no acute distress, slight hoarseness to voice HEENT: R sided posterior pharyngeal erythema with white exudates. CV: RRR Pulm: No tachypnea, normal effort Ext: no edema Objective Labs 09/05/23 18:55 09/06/23 08:23 Labs: Laboratory Results - last 24 hr 09/05/23 09/06/23 18:55 08:23 WBC 16.2 H RBC 5.13 Hgb 14.1 Hct 42.7 MCV 83.3 MCH 27.6 MCHC 33.1 RDW 15.0 H Plt Count 261 Neut % (Auto) 84.1 H Lymph % (Auto) 10.0 L [place] % (Auto) 5.5 Eos % (Auto) 0.1 L Baso % (Auto) 0.3 Neut # (Auto) 95315 H Lymph # (Auto) 1600 [place] # (Auto) 900 Eos # (Auto) 0 Baso # (Auto) 0 Sodium 136 L 136 L Potassium 4.2 4.1 Chloride 102 106 Carbon Dioxide 24 23 BUN 16 13 Creatinine 0.60 0.44 L Estimated GFR > 60 > 60 BUN/Creatinine Ratio 26.7 H 29.5 H Glucose 116 H 152 H Lactate 0.9 Calcium 10.1 9.0 Magnesium 2.0 Total Bilirubin 0.6 0.4 AST 25 20 ALT 31 25 Alkaline Phosphatase 114 97 Total Protein 8.4 H 7.4 Albumin 4.3 3.7 Globulin 4.1 3.7 Albumin/Globulin Ratio 1.0 1.0 Procalcitonin 0.12 PFSH Medical History Psoriasis Hypertension Smoker Surgical History (Updated 08/19/23 @ 13:41 by Eryn Cope RN) History of incision and drainage (05/26/23) Hx of hysterectomy Social History household members: none Smoking Status: Current some day smoker alcohol intake: current Discharge Plan Discharge Plan Patient Disposition: Home Provider Discharge Comment: You were admitted to the hospital with swelling of your throat. It is not entirely sure what the cause of this was, but we are broadening your antibiotics and you should complete a steroid taper as well. Discharge orders & Medications Prescriptions: New clindamycin HCl 300 mg capsule 300 mg PO Q6H 10 Days Qty: 40 0RF prednisone 10 mg tablet See Rx Instructions .ROUTE .COMPLEX Qty: 14 0RF Rx Instructions: 40 mg daily x2 days, 20 mg daily x2 days, 10 mg daily x2 days. Continued acetaminophen 325 mg Tablet 650 mg PO Q4H PRN (Reason: pain) ibuprofen 200 mg Tablet 400 mg PO Q6H PRN (Reason: pain) oxycodone 5 mg tablet 5 mg PO Q6H PRN (Reason: pain) 7 Days Qty: 20 0RF Discontinued amoxicillin 500 mg capsule 500 mg PO BID Follow up/Referrals: Ramya,, [Primary Care Provider] - Diet/Activity/Treatments Diet: Diet as Tolerated and Regular Activity: As tolearted, no restrictions. Visit Report/Discharge Packet Instructions: How to Use Antibiotics Wisely Stand Alone Forms: Patient Portal/API, Stroke Signs & Symptoms Discharge Data Primary Care Provider: Doctor Ramya Attending Provider: Dilip Polo Admit Date/Time: 09/05/23 22:50 Quality VTE Deep Vein Thrombosis/Pulmonary Embolism Present on Admission: No
--- NOTE | 2023-09-06 13:33 | CM.DANOTE ---
DCP Assessment Note patient is a 48yo F here following cellulites PCP unknown Payer [employer] and Medicaid SUPPLY CHAIN ASSISTANT reviewed EMR. Per provider in rounds, antibiotics and then likely dc today. Per provider in rounds, no needs for SUPPLY CHAIN ASSISTANT substance use consult at this time. Per chart, patient d/c home prior to being seen by this author due to triaging needs. Per chart, lives indept in [place]. Plan; home today. No CM needs identified at this time. CM team will continue to follow as needed. EDMOND Riojas Discharge Planning/Care Management CM Discharge Assessment Start: 09/06/23 13:19 Freq: Status: Active Protocol: Document 09/06/23 13:23 (Rec: 09/06/23 13:33 [id number]) Discharge Planning Assessment Assigned Agricultural Scientist EDMOND Carrizales DPOA/Assigned Designee Name Dinesh Lunsford Contact Information Father Advance Directives? Yes Advance Directives on File Yes History Provided By Medical Record Prior Living Arrangements House Household Members none Independent with ADL's Yes Is patient alert and oriented? Yes Comment Medicaid application Discharge Plan Home Referrals Initiated None needed Whiteboard Updated in Patient Room with No name and ext. # of Agricultural Scientist Review Status In Process Next Review Type Continued Stay Review
--- NOTE | 2023-09-15 16:44 | PC.NURSE ---
Late Entry: Piperacillin infusion initiated 09/06 at 0915 stopped at time of discharge noted [id number].
== END 2023-09-06 12:47 | disposition home or self-care (01) ==
LOC: ED 22:29 → AC 22:53
PROVIDERS: Admitting Provider Internal Medicine; Emergency Provider Emergency Medicine; Referring Provider Emergency Medicine; Visit Provider Internal Medicine
DX: J02.9 Acute pharyngitis, unspecified (principal); I10 Essential (primary) hypertension; F15.10 Other stimulant abuse, uncomplicated; F17.210 Nicotine dependence, cigarettes, uncomplicated
CPT/HCPCS: 36415; 70491; 80053; 83605; 83735; 84145; 85025; 87040; 87070; 87077; 87147; 96365; 96366; 96367; 96375; 96376; 99284; G0378; J1170; J1885; J2543; J2930; Q9967

== ENCOUNTER → 2023-09-08 14:52 | Outpatient (CLI) | payer OTHER, MEDICAID, SELFPAY ==
[2023-09-06 00:33] VITALS: BMI 32.5
== END ==
PROVIDERS: Referring Provider Internal Medicine; Visit Provider Surgery
DX: T81.31XA Disruption of external operation (surgical) wound, not elsewhere classified, initial encounter (principal); S81.801A Unspecified open wound, right lower leg, initial encounter; R60.0 Localized edema; L53.9 Erythematous condition, unspecified
CPT/HCPCS: 15271; Q4196

== ENCOUNTER → 2023-09-16 11:00 | Outpatient (CLI) | payer OTHER, MEDICAID, SELFPAY ==
[2023-09-06 00:33] VITALS: BMI 32.5
== END ==
LOC: WC 11:01
PROVIDERS: Referring Provider Internal Medicine; Visit Provider Surgery
DX: T81.89XA Other complications of procedures, not elsewhere classified, initial encounter (principal); S81.801A Unspecified open wound, right lower leg, initial encounter; R60.0 Localized edema; L53.9 Erythematous condition, unspecified
CPT/HCPCS: 99212

== ENCOUNTER → 2023-09-23 13:10 | Outpatient (CLI) | payer OTHER, MEDICAID, SELFPAY ==
[2023-09-06 00:33] VITALS: BMI 32.5
== END ==
LOC: WC 13:16
PROVIDERS: Visit Provider Surgery
DX: T81.89XA Other complications of procedures, not elsewhere classified, initial encounter (principal); R60.0 Localized edema; L40.9 Psoriasis, unspecified; S81.801A Unspecified open wound, right lower leg, initial encounter
CPT/HCPCS: 11042

== ENCOUNTER → 2023-09-29 15:15 | Outpatient (CLI) | payer OTHER, MEDICAID, SELFPAY ==
[2023-09-06 00:33] VITALS: BMI 32.5
== END ==
LOC: WC 15:16
PROVIDERS: Referring Provider Internal Medicine; Visit Provider Surgery
DX: T81.89XA Other complications of procedures, not elsewhere classified, initial encounter (principal); S81.801A Unspecified open wound, right lower leg, initial encounter; L98.8 Other specified disorders of the skin and subcutaneous tissue; R60.0 Localized edema; I70.1 Atherosclerosis of renal artery; F17.200 Nicotine dependence, unspecified, uncomplicated
CPT/HCPCS: 11042; 99213

== ENCOUNTER → 2023-10-21 14:13 | Outpatient (CLI) | payer OTHER, MEDICAID, SELFPAY ==
[2023-09-06 00:33] VITALS: BMI 32.5
== END ==
LOC: WC 14:17
PROVIDERS: Referring Provider Internal Medicine; Visit Provider Surgery
DX: T81.89XA Other complications of procedures, not elsewhere classified, initial encounter (principal); S81.801A Unspecified open wound, right lower leg, initial encounter; R60.0 Localized edema; L53.9 Erythematous condition, unspecified; Z79.2 Long term (current) use of antibiotics
CPT/HCPCS: 11042; 99213

== ENCOUNTER → 2023-11-01 15:01 | Outpatient (CLI) | payer OTHER, MEDICAID, SELFPAY ==
[2023-09-06 00:33] VITALS: BMI 32.5
== END ==
PROVIDERS: Referring Provider Internal Medicine; Visit Provider Surgery
DX: T81.89XA Other complications of procedures, not elsewhere classified, initial encounter (principal); S81.801A Unspecified open wound, right lower leg, initial encounter; L98.8 Other specified disorders of the skin and subcutaneous tissue; R60.0 Localized edema; I10 Essential (primary) hypertension; L40.9 Psoriasis, unspecified; I70.1 Atherosclerosis of renal artery; F17.200 Nicotine dependence, unspecified, uncomplicated; F15.11 Other stimulant abuse, in remission
CPT/HCPCS: 11042; 99212; 99213

== ENCOUNTER → 2023-11-09 13:30 | Outpatient (CLI) | payer OTHER, MEDICAID, SELFPAY ==
[2023-09-06 00:33] VITALS: BMI 32.5
== END ==
LOC: WC 13:30
PROVIDERS: Visit Provider Surgery
DX: T81.89XA Other complications of procedures, not elsewhere classified, initial encounter (principal); S81.801A Unspecified open wound, right lower leg, initial encounter; R60.0 Localized edema
CPT/HCPCS: 11042

== ENCOUNTER → 2023-12-09 15:07 | Outpatient (CLI) | payer OTHER, MEDICAID, SELFPAY ==
[2023-09-06 00:33] VITALS: BMI 32.5
== END ==
PROVIDERS: Referring Provider Internal Medicine; Visit Provider Surgery
DX: L97.812 Non-pressure chronic ulcer of other part of right lower leg with fat layer exposed (principal); I87.2 Venous insufficiency (chronic) (peripheral); R60.0 Localized edema; L40.9 Psoriasis, unspecified; F17.210 Nicotine dependence, cigarettes, uncomplicated
CPT/HCPCS: 11042; 99213

== ENCOUNTER → 2023-12-16 14:15 | Outpatient (CLI) | payer OTHER, MEDICAID, SELFPAY ==
[2023-09-06 00:33] VITALS: BMI 32.5
== END ==
LOC: WC 12-21 14:19
PROVIDERS: Visit Provider Surgery
DX: L97.812 Non-pressure chronic ulcer of other part of right lower leg with fat layer exposed (principal); I87.2 Venous insufficiency (chronic) (peripheral); I73.9 Peripheral vascular disease, unspecified; R60.0 Localized edema; R21 Rash and other nonspecific skin eruption; L40.9 Psoriasis, unspecified
CPT/HCPCS: 11042

== ENCOUNTER → 2023-12-23 13:03 | Outpatient (CLI) | payer OTHER, MEDICAID, SELFPAY ==
[2023-09-06 00:33] VITALS: BMI 32.5
== END ==
LOC: WC 13:04
PROVIDERS: Visit Provider Surgery
DX: L97.812 Non-pressure chronic ulcer of other part of right lower leg with fat layer exposed (principal); I87.2 Venous insufficiency (chronic) (peripheral); R23.4 Changes in skin texture; R60.0 Localized edema; L40.9 Psoriasis, unspecified
CPT/HCPCS: 11042

== ENCOUNTER → 2023-12-30 09:54 | Outpatient (CLI) | payer OTHER, MEDICAID, SELFPAY ==
[2023-09-06 00:33] VITALS: BMI 32.5
== END ==
LOC: WC 09:54
PROVIDERS: Visit Provider Surgery
DX: L97.812 Non-pressure chronic ulcer of other part of right lower leg with fat layer exposed (principal); I87.2 Venous insufficiency (chronic) (peripheral); R60.0 Localized edema; L53.9 Erythematous condition, unspecified
CPT/HCPCS: 11042

== ENCOUNTER → 2024-01-06 14:06 | Outpatient (CLI) | payer OTHER, MEDICAID, SELFPAY ==
[2023-09-06 00:33] VITALS: BMI 32.5
== END ==
LOC: WC 14:07
PROVIDERS: Visit Provider Surgery
DX: L97.812 Non-pressure chronic ulcer of other part of right lower leg with fat layer exposed (principal); I87.2 Venous insufficiency (chronic) (peripheral); R60.0 Localized edema; L40.9 Psoriasis, unspecified
CPT/HCPCS: 99212; 99213

== ENCOUNTER → 2024-01-12 15:07 | Outpatient (CLI) | payer OTHER, MEDICAID, SELFPAY ==
[2023-09-06 00:33] VITALS: BMI 32.5
== END ==
LOC: WC 15:07
PROVIDERS: Visit Provider Surgery
DX: R60.0 Localized edema (principal); I87.2 Venous insufficiency (chronic) (peripheral)
CPT/HCPCS: 99213

== ENCOUNTER → 2024-02-15 10:03 | Outpatient (CLI) | payer OTHER, MEDICAID, SELFPAY ==
[2023-09-06 00:33] VITALS: BMI 32.5
== END ==
PROVIDERS: Visit Provider Physician Assistant Surgical
DX: R31.9 Hematuria, unspecified (principal)
CPT/HCPCS: 87086

== ENCOUNTER 2024-02-15 11:33 | Emergency (ER) | payer OTHER, MEDICAID, SELFPAY ==
[2023-09-06 00:33] VITALS: BMI 32.5
[2024-02-15 11:42] VITALS: BP 205/103; PULSE 91; RESP 16; TEMP 37.1; O2SAT 98; BMI 34.3
--- NOTE | 2024-02-15 11:47 | PC.NURSE ---
patient has not had blood pressure medication today
[2024-02-15 12:06] VITALS: PULSE 88; O2SAT 98
[2024-02-15 12:07] VITALS: BP 153/80; PULSE 84; O2SAT 98
[2024-02-15 12:08] LABS: Appearance Urine UA SL CLOUDY; Bilirubin Urine UA NEGATIVE (NEGATIVE); Color Urine UA ORANGE; Glucose Urine UA NEGATIVE (Negative); Ketones Urine UA NEGATIVE (NEGATIVE); Leukocyte Esterase Urine UA 2+ (NEGATIVE); Nitrite Urine UA NEGATIVE (Negative); Occult Blood Urine UA 3+ (Negative); Protein Urine UA 1+ (Negative); Urobilinogen Urine UA 0.2 E.U./dL (0.2)
[2024-02-15 12:10] LABS: pH Urine UA 5.5 (4.5-8.0)
[2024-02-15 12:15] LABS: Urine Volume 10mL (spun)
[2024-02-15 12:16] LABS: Bacteria Urine None Seen; Culture Indicated Urine Specimen Cultured; RBC Urine 10-30/HPF (0-5/HPF); Squamous Epithelial Cell Urine 0-1 /HPF (0-5/HPF); WBC Urine 5-10/HPF (0-5/HPF)
--- NOTE | 2024-02-15 12:29 | ED.GENADULT ---
HPI - General Adult General Chief complaint: Urogenital-Female Stated complaint: Bladder issues Time Seen by Provider: 02/15/24 12:04 Source: patient Mode of arrival: Ambulatory History of Present Illness HPI narrative: Patient is a 48-year-old female. For the past 5 days she has had lower abdominal pressure. Urinating frequently. Initially had some hematuria that went away but then came back again last evening. Also is having some lower back discomfort. It feels very similar to when she had a urinary tract infection in the past which was several years ago. Has never had a kidney stone. No abdominal pain. No fevers. No vomiting. Went to the walk-in clinic and sent to the emergency department for further evaluation Related Data Home Medications Medication Instructions Recorded Confirmed acetaminophen 325 mg tablet 650 mg PO Q4H PRN pain 09/06/23 09/10/23 ibuprofen 200 mg tablet 400 mg PO Q6H PRN pain 09/06/23 09/10/23 lisinopril 10 mg tablet 10 mg PO DAILY 02/15/24 02/15/24 Previous Rx's Medication Instructions Recorded oxycodone 5 mg tablet 5 mg PO Q6H PRN pain 7 days #20 09/06/23 tabs prednisone 10 mg tablet See Rx Instructions .Route 09/06/23 .COMPLEX #14 tabs amlodipine 5 mg tablet 5 mg PO DAILY #90 tabs 09/10/23 cephalexin 500 mg capsule 500 mg PO BID 7 days #14 caps 02/15/24 phenazopyridine 100 mg tablet 100 mg PO TID PRN pain 6 doses #6 02/15/24 (Pyridium) tabs Allergies Allergy/AdvReac Type Severity Reaction Status Date / Time latex Allergy Mild Hives Verified 02/15/24 10:58 Review of Systems Review of Systems Narrative: See HPI Patient History Medical History Psoriasis Hypertension Smoker Surgical History History of incision and drainage (05/26/23) Hx of hysterectomy Social History household members: none Smoking Status: Current some day smoker alcohol intake: current Smoking Status: Current some day smoker alcohol intake frequency: holidays/special occasions only Substance Use Type: marijuana and methamphetamine Exam Initial Vital Signs Initial Vital Signs: Vital Signs Temperature 98.8 F 02/15/24 11:42 Pulse Rate 91 H 02/15/24 11:42 Respiratory Rate 16 02/15/24 11:42 Blood Pressure 205/103 H 02/15/24 11:42 Pulse Oximetry 98 02/15/24 11:42 Oxygen Delivery Method Room Air 02/15/24 11:42 [facility] Head: normal to inspection and normocephalic Resp Effort & Inspection: normal respiratory effort GI Inspection: normal to inspection and non-distended Palpation: soft, No firm, No guarding and No tender Back/Spine/Pelvis Back: No CVA tenderness Course Orders Ordered: ED Orders 02/15/24 12:00 Urinalysis and Microscopic Stat Urine Culture Stat Vital Signs Vital signs: Vital Signs - 8 hr 02/15/24 11:42 Temperature 98.8 F Pulse Rate 91 H Respiratory Rate 16 Blood Pressure 205/103 H Pulse Oximetry 98 Oxygen Delivery Method Room Air Medical Decision Making Lab Data Lab results reviewed: Yes I reviewed the patient's lab results. Labs: Lab Results 02/15/24 Range/Units 12:00 Urine Color [place] Urine Appearance Sl cloudy Urine pH 5.5 (4.5-8.0) Ur Specific [place] 1.010 (1.000-1.035) Urine Protein 1+ H (Negative) Urine Glucose (UA) Negative (Negative) g/dL Urine Ketones Negative (NEGATIVE) Urine Occult Blood 3+ H (Negative) Urine Nitrate Negative (Negative) Urine Bilirubin Negative (NEGATIVE) Urine Urobilinogen 0.2 (0.2) E.U./dL Ur Leukocyte Esterase 2+ H (NEGATIVE) Urine RBC 10-30/hpf H (0-5/HPF) Urine WBC 5-10/hpf H (0-5/HPF) Ur Squamous Epith Cells 0-1 /hpf (0-5/HPF) Urine Bacteria None seen (None) Ur Culture Indicated? Specimen cultured Vol Urine Centrifuged 10ml (spun) MDM Narrative Medical decision making narrative: History and physical exam is consistent with a urinary tract infection. I have low suspicion for pyelo. Can tolerate oral antibiotics. We discussed the possibility of another intra-abdominal issue however given her history this is most consistent with her prior UTIs. She was having hematuria and white blood cells in her urine. Will treat with antibiotics. Urine culture pending at the time of her discharge we will contact her for need to change antibiotics based on this. She was given return precautions. She expressed understanding and agreement. Discharge Plan Departure Patient Disposition: Home Clinical Impression: Urinary tract infection, Hematuria Instructions: DI for Urinary Tract Infection (UTI), DI for Hematuria Activity Restrictions/Additional Instructions: Take the antibiotics as directed. A urine culture was pending at the time of your discharge and we will contact you if we need to change antibiotics based on this. Contact your primary doctor for a follow-up. Return to the emergency department for new or worsening symptoms. Prescriptions: New cephalexin 500 mg capsule 500 mg PO BID 7 Days Qty: 14 0RF phenazopyridine [Pyridium] 100 mg tablet 100 mg PO TID PRN (Reason: pain) Qty: 6 0RF No Action lisinopril 10 mg tablet 10 mg PO DAILY amlodipine 5 mg tablet 5 mg PO DAILY Qty: 90 3RF acetaminophen 325 mg Tablet 650 mg PO Q4H PRN (Reason: pain) ibuprofen 200 mg Tablet 400 mg PO Q6H PRN (Reason: pain) oxycodone 5 mg tablet 5 mg PO Q6H PRN (Reason: pain) 7 Days Qty: 20 0RF prednisone 10 mg tablet See Rx Instructions .ROUTE .COMPLEX Qty: 14 0RF Rx Instructions: 40 mg daily x2 days, 20 mg daily x2 days, 10 mg daily x2 days. Referrals: Miscellaneous,Doctor, MD [Primary Care Provider] - Stand Alone Forms: Patient Portal/API
[2024-02-15 12:30] VITALS: BP 159/81; PULSE 81; O2SAT 97
== END 2024-02-15 12:47 | disposition home or self-care (01) ==
PROVIDERS: Emergency Provider Emergency Medicine
DX: N39.0 Urinary tract infection, site not specified (principal); R31.9 Hematuria, unspecified
CPT/HCPCS: 81001; 81002; 87077; 87086; 87186; 99281; 99283

== ENCOUNTER 2024-04-24 22:15 | Emergency (ER) | payer OTHER, MEDICAID, SELFPAY ==
[2023-09-06 00:33] VITALS: BMI 32.5
[2024-04-24 22:23] VITALS: PULSE 105; RESP 25; O2SAT 100
[2024-04-24 22:25] VITALS: BP 202/113; PULSE 104; RESP 24; TEMP 36.9; O2SAT 99; BMI 34.3
[2024-04-24 22:30] VITALS: BP 182/90; PULSE 97; RESP 26; O2SAT 100
--- NOTE | 2024-04-24 22:36 | ED.GENADULT ---
HPI - General Adult General Chief complaint: Hypertension Stated complaint: high blood pressure, 165/110 Time Seen by Provider: 04/24/24 22:20 Source: patient Mode of arrival: Ambulatory History of Present Illness HPI narrative: 48-year-old female with history of hypertension, hyperlipidemia, history of amphetamine use presents by private vehicle from home for elevated blood pressure readings. Patient states that for the last several days she has had intermittent chest pains, headaches, general unwell feeling. Her blood pressure has been up to 160s systolic at home, so she decided to present for evaluation. It was on 10 mg of lisinopril and 5 mg of amlodipine. Daily tobacco user. Patient states that she has not had any pain today. Related Data Home Medications Medication Instructions Recorded Confirmed acetaminophen 325 mg tablet 650 mg PO Q4H PRN pain 09/06/23 09/10/23 ibuprofen 200 mg tablet 400 mg PO Q6H PRN pain 09/06/23 09/10/23 lisinopril 10 mg tablet 10 mg PO DAILY 02/15/24 02/15/24 Previous Rx's Medication Instructions Recorded oxycodone 5 mg tablet 5 mg PO Q6H PRN pain 7 days #20 09/06/23 tabs prednisone 10 mg tablet See Rx Instructions .Route 09/06/23 .COMPLEX #14 tabs amlodipine 5 mg tablet 5 mg PO DAILY #90 tabs 09/10/23 phenazopyridine 100 mg tablet 100 mg PO TID PRN pain 6 doses #6 02/15/24 (Pyridium) tabs Allergies Allergy/AdvReac Type Severity Reaction Status Date / Time latex Allergy Mild Hives Verified 02/15/24 10:58 Patient History Medical History Psoriasis Hypertension Smoker Surgical History History of incision and drainage (05/26/23) Hx of hysterectomy Social History household members: none Smoking Status: Current every day smoker alcohol intake: current Smoking Status: Current every day smoker tobacco type: cigarettes alcohol intake frequency: holidays/special occasions only Substance Use Type: marijuana and methamphetamine Exam Initial Vital Signs Initial Vital Signs: Vital Signs Pulse Rate 105 H 04/24/24 22:23 Respiratory Rate 25 H 04/24/24 22:23 Pulse Oximetry 100 04/24/24 22:23 Const: Awake, alert, no acute distress, nontoxic appearing Cardiac: regular rate, regular rhythm RESP: unlabored, clear bilaterally, no wheezing GI: Soft, nontender, nondistended, no rebound, no guarding Skin: Warm, Dry, intact, no rashes Neuro: AO x3, CN II-XII grossly intact, moves all extremities Course Orders Ordered: ED Orders 04/24/24 22:42 Chest [XR chest 1V] Stat EKG-12 Lead Stat 04/24/24 23:00 CBC Auto Diff [Complete Blood Count AUTO DIFF] Stat CMP [Comprehensive Metabolic Panel] Stat Troponin & CK Cardiac Panel Stat Discontinued Medications Clonidine HCl (Clonidine 0.1 Mg Tablet) 0.1 mg PO NOW ONE Stop: 04/24/24 22:43 Last Admin: 04/24/24 22:48 Dose: 0.1 mg Documented By: AB Vital Signs Vital signs: Vital Signs - 8 hr 04/24/24 22:23 04/24/24 22:25 04/24/24 22:30 Temperature 98.5 F Pulse Rate 105 H 104 H Respiratory Rate 25 H 24 Blood Pressure 202/113 H 182/90 H Pulse Oximetry 100 99 Oxygen Delivery Method Room Air 04/24/24 22:30 04/24/24 22:48 04/24/24 23:00 Temperature Pulse Rate 97 H Respiratory Rate 26 H Blood Pressure 182/90 H 185/105 H Pulse Oximetry 100 Oxygen Delivery Method 04/24/24 23:00 04/24/24 23:30 04/24/24 23:30 Temperature Pulse Rate 92 H 80 Respiratory Rate 24 18 Blood Pressure 151/88 H Pulse Oximetry 98 99 Oxygen Delivery Method Room Air Room Air Medical Decision Making Lab Data 04/24/24 23:00 04/24/24 23:00 Labs: Lab Results 04/24/24 Range/Units 23:00 WBC 9.2 (4.5-11.0) X10^3/uL RBC 5.09 (4.0-5.2) X10^6/uL Hgb 14.3 (12.0-16.0) g/dL Hct 43.3 (36-46) % MCV 85.0 (80-100) fL MCH 28.1 (26-34) PG MCHC 33.1 (30-36) % RDW 14.9 H (11.6-14.8) % Plt Count 322 (150-400) X10^3/uL Neut % (Auto) 70.9 (50-75) % Lymph % (Auto) 22.3 L (25-40) % [place] % (Auto) 5.3 (3-14) % Eos % (Auto) 0.4 L (2-4) % Baso % (Auto) 1.1 (0-2) % Neut # (Auto) 6500 (6915-7999) /uL Lymph # (Auto) 2100 (9166-5019) /uL [place] # (Auto) 500 (0-900) /uL Eos # (Auto) 0 (0-450) /uL Baso # (Auto) 100 (0-100) /uL Sodium 137 (137-145) mmol/L Potassium 3.8 (3.4-5.1) mmol/L Chloride 104 (98-107) mmol/L Carbon Dioxide 27 (22-32) mmol/L BUN 19 H (7-17) mg/dL Creatinine 0.83 (0.52-1.04) mg/dL Estimated GFR > 60 (>60) mL/min BUN/Creatinine Ratio 22.9 H (6-22) Glucose 106 H (70-100) mg/dL Calcium 9.5 (8.4-10.2) mg/dL Total Bilirubin 0.4 (0.2-1.3) mg/dL AST 27 (14-36) IU/L ALT 18 (<35) IU/L Alkaline Phosphatase 72 (38-126) U/L Total Creatine Kinase 87 (30-135) U/L Troponin I < 0.012 (0.01-0.034) ng/mL Total Protein 7.9 (6.3-8.2) g/dL Albumin 4.5 (3.5-5.0) g/dL Globulin 3.4 (1.7-4.1) g/dL Albumin/Globulin Ratio 1.3 (1.0-2.8) Imaging Data Chest x-ray: Radiologist's Impression: PROCEDURE: XR CHEST 1V INDICATIONS: chest pain TECHNIQUE: One view of the chest was acquired. COMPARISON: Located Within [facility], CR, XR CHEST 1V, 05/23/2023, 13:38. FINDINGS: Surgical changes and devices: None. Lungs and pleura: Lungs are clear. No pleural effusions or pneumothorax. Mediastinum: Mediastinal contours appear normal. Heart size is normal. Bones and chest wall: No suspicious bony lesions. Overlying soft tissues appear unremarkable. IMPRESSION: No acute cardiopulmonary abnormality is seen. Dictated by: Dany Castillo M.D. on 04/24/2024 at 23:50 Approved by: Dany Castillo M.D. on 04/24/2024 at 23:50 ECG Data Interpretation: Normal sinus rhythm at 95 beats per minute. Normal NH, no acute ST T wave changes, no STEMI MDM Narrative Additional Information: Intermittent nonspecific symptoms with elevated blood pressure readings at home. Patient also reports that she was not been 100% compliant with her blood pressure medications. Pain-free today. EKG sinus rhythm, no acute concerning findings. Laboratory work and imaging ordered. Laboratory work shows WBC count 9.2, hemoglobin 14.3, platelet count 322, sodium 137, potassium 3.8, creatinine 0.83, troponin undetectable. Chest x-ray negative for acute findings. Patient's blood pressure decreased with p.o. clonidine. Patient counseled on lab and imaging findings, recommended increasing lisinopril to 20 mg daily and following up with primary care doctor. ED return precautions discussed at bedside Discharge Plan Departure Patient Disposition: Home Clinical Impression: Hypertension Instructions: DI for High Blood Pressure Activity Restrictions/Additional Instructions: Your laboratory work, EKG, chest x-ray today were normal. You do not appear to have organ damage from your high blood pressure. I do recommend increasing your lisinopril from 10 mg to 20 mg daily. Follow up with your primary care doctor. Prescriptions: No Action lisinopril 10 mg tablet 10 mg PO DAILY amlodipine 5 mg tablet 5 mg PO DAILY Qty: 90 3RF acetaminophen 325 mg Tablet 650 mg PO Q4H PRN (Reason: pain) ibuprofen 200 mg Tablet 400 mg PO Q6H PRN (Reason: pain) oxycodone 5 mg tablet 5 mg PO Q6H PRN (Reason: pain) 7 Days Qty: 20 0RF prednisone 10 mg tablet See Rx Instructions .ROUTE .COMPLEX Qty: 14 0RF Rx Instructions: 40 mg daily x2 days, 20 mg daily x2 days, 10 mg daily x2 days. phenazopyridine [Pyridium] 100 mg tablet 100 mg PO TID PRN (Reason: pain) Qty: 6 0RF Referrals: Miscellaneous,Doctor, MD [Primary Care Provider] - Stand Alone Forms: Patient Portal/API
--- NOTE | 2024-04-24 22:42 | EKG_ITS ---
[place] [address] [address] [place] [id number] Test Date: 2024-04-24 Pat Name: Ruthy Lunsford Department: [facility] Room: Gender: Female [employer]: AMANUEL Zamora : 1975 Requested By: Order Number: [id number] Reading MD: Fred Gil MD Measurements Intervals [place] Rate: 95 P: 66 MS: 184 QRS: 45 QRSD: 104 T: 51 QT: 384 QTc: 482 Interpretive Statements Normal sinus rhythm Possible Inferior infarct , age undetermined Cannot rule out Anterior infarct , age undetermined NO PRIOR TRACING Electronically Signed On 04-25-2024 7:24:17 PDT by Fred Gil MD
--- NOTE | 2024-04-24 22:42 | DI.RAD.S_ITS ---
PROCEDURE: XR CHEST 1V INDICATIONS: chest pain TECHNIQUE: One view of the chest was acquired. COMPARISON: [facility], CR, XR CHEST 1V, 05/23/2023, 13:38. FINDINGS: Surgical changes and devices: None. Lungs and pleura: Lungs are clear. No pleural effusions or pneumothorax. Mediastinum: Mediastinal contours appear normal. Heart size is normal. Bones and chest wall: No suspicious bony lesions. Overlying soft tissues appear unremarkable. IMPRESSION: No acute cardiopulmonary abnormality is seen. Dictated by: Dany Castillo M.D. on 04/24/2024 at 23:50 Approved by: Dany Castillo M.D. on 04/24/2024 at 23:50
[2024-04-24 22:48] VITALS: BP 182/90
[2024-04-24] MEDS: cloNIDine 0.1 MG TABLET PO (22:48)
[2024-04-24 23:00] VITALS: BP 185/105; PULSE 92; RESP 24; O2SAT 98
--- NOTE | 2024-04-24 23:07 | PC.NURSE ---
Chief complaint is more headache that started yesterday, with an elevated BP. Pt has difficulty remembering to take her BP medications. Per her recollection on triage she states that she has not taken today, but when this nurse completed assessment pt states oh yeah I did take them around 11am.
[2024-04-24 23:13] LABS: Add Manual Diff / Slide Review NO; Basophils Absolute Auto 100 /uL (0-100); Basophils Percent Auto 1.1 % (0-2); Eosinophils Absolute Auto 0 /uL (0-450); Eosinophils Percent Auto 0.4 % (2-4); Hematocrit 43.3 % (36-46); Hemoglobin 14.3 g/dL (12.0-16.0); Lymphocytes Absolute Auto 2100 /uL (1100-4500); Lymphocytes Percent Auto 22.3 % (25-40); Mean Corpuscular HGB Conc 33.1 % (30-36); Mean Corpuscular Hemoglobin 28.1 PG (26-34); Monocytes Absolute Auto 500 /uL (0-900); Monocytes Percent Auto 5.3 % (3-14); Neutrophils Absolute Auto 6500 /uL (1500-7000); Neutrophils Percent Auto 70.9 % (50-75); Platelet Count 322 X10^3/uL (150-400); Red Blood Cell Count 5.09 X10^6/uL (4.0-5.2); Red Cell Distribution Width 14.9 % (11.6-14.8); White Blood Cell Count 9.2 X10^3/uL (4.5-11.0)
[2024-04-24 23:21] LABS: Alanine Aminotransferase 18 IU/L (<35); Albumin 4.5 g/dL (3.5-5.0); Albumin Globulin Ratio 1.3 (1.0-2.8); Alkaline Phosphatase 72 U/L (38-126); Aspartate Aminotransferase 27 IU/L (14-36); BUN Creatinine Ratio 22.9 (6-22); Bilirubin Total 0.4 mg/dL (0.2-1.3); Blood Urea Nitrogen 19 mg/dL (7-17); Calcium 9.5 mg/dL (8.4-10.2); Carbon Dioxide 27 mmol/L (22-32); Chloride 104 mmol/L (98-107); Creatine Kinase 87 U/L (30-135); Estimated Glomerular Filt Rate > 60 mL/min (>60); Globulin 3.4 g/dL (1.7-4.1); Glucose 106 mg/dL (70-100); HEMOLYSIS < 15 (0-50); Potassium 3.8 mmol/L (3.4-5.1); Sodium 137 mmol/L (137-145); Total Protein 7.9 g/dL (6.3-8.2)
[2024-04-24 23:30] VITALS: BP 151/88; PULSE 80; RESP 18; O2SAT 99
[2024-04-24 23:33] LABS: Troponin I < 0.012 ng/mL (0.01-0.034)
== END 2024-04-24 23:58 | disposition home or self-care (01) ==
PROVIDERS: Emergency Provider Emergency Medicine
DX: I10 Essential (primary) hypertension (principal); R07.9 Chest pain, unspecified
CPT/HCPCS: 36415; 71045; 80053; 82550; 84484; 85025; 93005; 93010; 99284

== ENCOUNTER → 2024-06-08 09:55 | Outpatient (CLI) | payer OTHER, MEDICAID, SELFPAY ==
[2023-09-06 00:33] VITALS: BMI 32.5
== END ==
LOC: WC 09:56
PROVIDERS: Family Provider Family Medicine; PCP Family Medicine; Referring Provider Internal Medicine; Visit Provider Surgery
DX: S81.801A Unspecified open wound, right lower leg, initial encounter (principal); R60.0 Localized edema; L53.9 Erythematous condition, unspecified; L98.8 Other specified disorders of the skin and subcutaneous tissue; I87.2 Venous insufficiency (chronic) (peripheral); L03.115 Cellulitis of right lower limb; L40.9 Psoriasis, unspecified; L08.89 Other specified local infections of the skin and subcutaneous tissue; F17.210 Nicotine dependence, cigarettes, uncomplicated; Z79.2 Long term (current) use of antibiotics
CPT/HCPCS: 87070; 87075; 87205; 97597; 99213; 99214

== ENCOUNTER → 2024-06-15 11:08 | Outpatient (CLI) | payer OTHER, MEDICAID, SELFPAY ==
[2023-09-06 00:33] VITALS: BMI 32.5
== END ==
PROVIDERS: Family Provider Family Medicine; PCP Family Medicine; Referring Provider Internal Medicine; Visit Provider Surgery
DX: S81.801D Unspecified open wound, right lower leg, subsequent encounter (principal); R60.0 Localized edema; F17.210 Nicotine dependence, cigarettes, uncomplicated
CPT/HCPCS: 99213

== ENCOUNTER → 2025-06-05 18:40 | Outpatient (CLI) | payer OTHER, SELFPAY ==
[2023-09-06 00:33] VITALS: BMI 32.5
== END ==
PROVIDERS: Family Provider Family Medicine; PCP Family Medicine; Visit Provider Chiropractor
DX: L03.116 Cellulitis of left lower limb (principal)
CPT/HCPCS: 87070; 87075; 87205